=== PATIENT | male | born 1975 | race African-American/Black ===

== ENCOUNTER 2021-02-23 05:48 | Inpatient (IN) ==
[2021-02-23] MEDS ORDERED: SODIUM CHLORIDE 0.9% 1000ML 2,000 ML IV ONE (06:08)
[2021-02-23] MEDS ORDERED: KETOROLAC TROMETHAMINE 15 MG/ML VIAL IV STA (06:10)
--- NOTE | 2021-02-23 06:32 | Emergency Department Note ---
ED Visit Note I contributed to the care of this patient under the supervision of Dr. Funez . Resident Activity Tracking Resident Involvement: Resident Care Provided Care Provided: Adult ED
--- NOTE | 2021-02-23 06:45 | XRay Report ---
XR chest 1V portable CLINICAL HISTORY: Resp sx c/w COVID-19 COMPARISON STUDY: No previous studies for comparison. FINDINGS: There is no pneumothorax or pleural effusion. Multifocal bilateral airspace opacities are present. Cardiac size is at the upper limits of normal. There is no evidence for pulmonary edema. IMPRESSION: Multifocal bilateral airspace opacities consistent with pneumonia. ACT 112: Negative or not required by law. Electronically signed by: Jakob Ingram M.D. 02/23/2021 6:44 AM
[2021-02-23 06:58] LABS: Basophils # (auto) 0.01 K/uL (0-0.2); Basophils % (auto) 0.1 %; Hemoglobin 14.9 g/dL (14.0-18.0); Immature Granulocytes # (auto) 0.01 K/uL (0.00-0.02); Immature Granulocytes % (auto) 0.1 %; Lymphocytes # (auto) 1.03 K/uL (1.2-3.4); Lymphocytes % (auto) 14.2 %; Mean Corpuscular Hemoglobin 30.7 pg (25-34); Mean Corpuscular Hgb Conc 34.7 g/dL (32-36); Mean Corpuscular Volume 88.5 fL (80-100); Mean Platelet Volume 12.2 fL (7.4-10.4); Monocytes # (auto) 0.46 K/uL (0.11-0.59); Monocytes % (auto) 6.3 %; Neutrophils # (auto) 5.75 K/uL (1.4-6.5); Neutrophils % (auto) 79.3 %; Platelet Count 154 K/uL (130-400); RDW Coefficient of Variation 12.7 % (11.5-14.5); RDW Standard Deviation 40.9 fL (36.4-46.3); Red Blood Count 4.86 M/uL (4.7-6.1); White Blood Count 7.26 K/uL (4.8-10.8)
[2021-02-23 06:59] LABS: Alanine Aminotransferase 49 U/L (12-78); Albumin Level 3.2 gm/dl (3.4-5.0); Aspartate Aminotransferase 66 U/L (15-37); BUN Creatinine Ratio 14.2 (10-20); Blood Urea Nitrogen 28 mg/dl (7-18); Calcium 8.3 mg/dl (8.5-10.1); Carbon Dioxide 25 mmol/L (21-32); Chloride 101 mmol/L (98-107); Est GFR (Non-African American) 39.7; Glucose 114 mg/dl (70-99); Potassium 3.8 mmol/L (3.5-5.1); Sodium 133 mmol/L (136-145)
[2021-02-23 07:02] LABS: Albumin Globulin Ratio 0.7 (0.9-2); Alkaline Phosphatase 37 U/L (45-117); Bilirubin,Total 0.5 mg/dl (0.2-1); Globulin 4.5 gm/dl (2.5-4.0); Total Protein 7.7 gm/dl (6.4-8.2)
--- NOTE | 2021-02-23 07:12 | Emergency Department Note ---
History of Present Illness General Chief complaint: Illness Stated complaint: COUGH,CHILLS,WEAKNESS,BODY ACHES POSSIBLE COVID Time Seen by Provider: 02/23/21 06:18 History of Present Illness Provider complaint: Weakness fatigue cough shortness of breath Onset (ago): day(s) 8 Current Pain Intensity: 0 Associated symptoms: + cough, + fever/chills, + headaches, + nausea/vomiting (No vomiting), + shortness of breath, + syncope and + weakness 45-year-old -[place] male presents to the emergency department with fatigue shortness of breath body aches and weakness. Patient reports his tested positive for COVID on February 14. He states his son and him got tested after and were negative at the time, but were asymptomatic. Shortly after that he started developing symptoms. He reports waking up at night with soaking night sweats, chills, diarrhea, no appetite. Bowel movements are brown-water, no blood or melena. Urine has been dark/gold. Patient reports increased fatigue. He reports he started standing up at home and felt like he was going to pass out and has fallen from weakness. Patient denies any head trauma. Patient is not on any blood thinners. No abdominal pain, or vomiting. Patient does report nausea. No chest pain at this time. Home Medications Medication Instructions Recorded Confirmed Type No Known Home Medications 07/16/20 02/23/21 History Allergies Allergy/AdvReac Type Severity Reaction Status Date / Time No Known Allergies Allergy Verified 02/23/21 06:13 Past Med/Surg History Medical History (Updated 02/23/21 @ 09:58 by Jaison Funez) Hypertension Pre-hypertension Surgical History No pertinent past surgical history Family History Father Hypertension Diabetes Prostate cancer Mother Hypertension Diabetes Denies family history of Ovarian cancer Myocardial infarction Breast cancer Colorectal cancer Social History Smoking Status: Never smoker Second Hand Exposure: No; Hx Alcohol Use: Yes Hx Substance Use: No Preferred Language: Amharic Visual Impairment: No Limitations Hearing Ability: Normal marital status: Current Living Situation: Spouse current occupational status: employed 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, 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: Yes Physical Activity Frequency: 3-4 Times per Week Review of Systems A total of 10 systems reviewed and were otherwise negative Physical Exam Vital Signs Vital Signs - 24 hr 02/23/21 05:52 02/23/21 06:05 02/23/21 06:09 Temperature 37.4 C Temperature Source Temporal Artery Scan Pulse Rate 93 H 89 90 Pulse Rate [Right Finger] Pulse Rate from SpO2 Sensor 90 89 Respiratory Rate 20 24 24 Respiratory Effort / Characteristics Non-Labored Spontaneous Respiratory Depth Normal Respiratory Pattern Regular Blood Pressure 81/59 L 97/71 L Blood Pressure [Left Arm] Blood Pressure Mean 66 79 Blood Pressure Mean [Left Arm] Blood Pressure Position Sitting Blood Pressure Position [Left Arm] Pulse Oximetry 94 91 90 Oxygen Delivery Method Room Air Oxygen Flow Rate Sepsis Recent Fever Within 48 Hours Yes Sepsis New/Unexplained Change in Mental Status No Sepsis Action Taken by Nursing No Action Required Pulse Oximetry Post Tiitration 02/23/21 06:26 02/23/21 06:30 02/23/21 06:34 Temperature Temperature Source Pulse Rate 86 90 Pulse Rate [Right Finger] 88 Pulse Rate from SpO2 Sensor 87 81 Respiratory Rate 24 27 H 24 Respiratory Effort / Characteristics Respiratory Depth Respiratory Pattern Blood Pressure 118/84 Blood Pressure [Left Arm] 97/71 L Blood Pressure Mean 95 Blood Pressure Mean [Left Arm] 79 Blood Pressure Position Blood Pressure Position [Left Arm] Lying Pulse Oximetry 88 L 90 86 L Oxygen Delivery Method Room Air Oxygen Flow Rate Sepsis Recent Fever Within 48 Hours Sepsis New/Unexplained Change in Mental Status Sepsis Action Taken by Nursing Pulse Oximetry Post Tiitration 02/23/21 07:00 02/23/21 07:30 02/23/21 07:39 Temperature Temperature Source Pulse Rate 84 81 84 Pulse Rate [Right Finger] Pulse Rate from SpO2 Sensor 84 81 85 Respiratory Rate 24 26 H 24 Respiratory Effort / Characteristics Respiratory Depth Respiratory Pattern Blood Pressure 150/104 H Blood Pressure [Left Arm] Blood Pressure Mean 119 Blood Pressure Mean [Left Arm] Blood Pressure Position Blood Pressure Position [Left Arm] Pulse Oximetry 91 92 92 Oxygen Delivery Method Oxygen Flow Rate Sepsis Recent Fever Within 48 Hours Sepsis New/Unexplained Change in Mental Status Sepsis Action Taken by Nursing Pulse Oximetry Post Tiitration 02/23/21 07:40 02/23/21 08:00 02/23/21 08:01 Temperature Temperature Source Pulse Rate 83 83 82 Pulse Rate [Right Finger] Pulse Rate from SpO2 Sensor 84 83 82 Respiratory Rate 28 H 24 16 Respiratory Effort / Characteristics Respiratory Depth Respiratory Pattern Blood Pressure 116/82 Blood Pressure [Left Arm] Blood Pressure Mean 93 Blood Pressure Mean [Left Arm] Blood Pressure Position Blood Pressure Position [Left Arm] Pulse Oximetry 92 99 98 Oxygen Delivery Method Oxygen Flow Rate Sepsis Recent Fever Within 48 Hours Sepsis New/Unexplained Change in Mental Status Sepsis Action Taken by Nursing Pulse Oximetry Post Tiitration 02/23/21 08:30 02/23/21 08:31 02/23/21 09:00 Temperature Temperature Source Pulse Rate 88 83 87 Pulse Rate [Right Finger] Pulse Rate from SpO2 Sensor 88 82 87 Respiratory Rate 23 12 14 Respiratory Effort / Characteristics Respiratory Depth Respiratory Pattern Blood Pressure 135/79 127/74 Blood Pressure [Left Arm] Blood Pressure Mean 97 91 Blood Pressure Mean [Left Arm] Blood Pressure Position Blood Pressure Position [Left Arm] Pulse Oximetry 100 97 96 Oxygen Delivery Method Oxygen Flow Rate Sepsis Recent Fever Within 48 Hours Sepsis New/Unexplained Change in Mental Status Sepsis Action Taken by Nursing Pulse Oximetry Post Tiitration 02/23/21 09:01 02/23/21 09:29 Temperature Temperature Source Pulse Rate 94 H Pulse Rate [Right Finger] Pulse Rate from SpO2 Sensor 93 H Respiratory Rate 24 Respiratory Effort / Characteristics Respiratory Depth Respiratory Pattern Blood Pressure Blood Pressure [Left Arm] Blood Pressure Mean Blood Pressure Mean [Left Arm] Blood Pressure Position Blood Pressure Position [Left Arm] Pulse Oximetry 94 89 L Oxygen Delivery Method Nasal Cannula Oxygen Flow Rate 2 Sepsis Recent Fever Within 48 Hours Sepsis New/Unexplained Change in Mental Status Sepsis Action Taken by Nursing Pulse Oximetry Post Tiitration 95 Physical Exam GENERAL: He is oriented to person, place, and time. He appears well-developed and well-nourished. He does not appear distressed. HENT: Exam performed. - Head: Normocephalic and atraumatic. - Right Ear: External ear normal. No mastoid tenderness. - Left Ear: External ear normal. No mastoid tenderness. - Mouth/Throat: The oropharynx is clear and moist. No trismus in the jaw. No dental abscesses or uvula swelling. No oropharyngeal exudate or tonsillar abscesses. EYES: Conjunctivae and EOM are normal. Pupils are equal, round, and reactive to light. Right eye exhibits no discharge. Left eye exhibits no discharge. No scleral icterus. NECK: Normal range of motion. Neck supple. No JVD present. No spinous process tenderness present. No carotid bruit present. No rigidity. No tracheal deviation and normal range of motion present. No Brudzinski's sign and no Kernig's sign noted. CV: Tachycardic rate, regular rhythm, normal heart sounds and intact distal pulses. There is no peripheral edema. Palpable radial pulses bue. PULM/CHEST: Diminished breath sounds bilaterally and rhonchi bilaterally. ABD: The abdomen is soft. Bowel sounds are normal. He has no distension. No mass is present. There is no tenderness. There is no rebound, no guarding, no Shoemaker's sign and no tenderness at McBurney's point. Rovsig negative. MUSC/SKEL: Normal range of motion. There is no peripheral edema, tenderness or deformity. LYMPH: No cervical adenopathy. NEURO: He is alert and oriented to person, place, and time. He has normal strength. No cranial nerve deficit or sensory deficit. Coordination and gait normal. GCS eye subscore is 4. GCS verbal subscore is 5. GCS motor subscore is 6. Cerebellar tests wnl. SKIN: Skin is warm and dry. He is not diaphoretic. PSYCH: He has a normal mood and affect. Behavior is normal. Judgment and thought content normal. Course Course 0635: The patient was evaluated in room A9. A complete history and physical exam was performed Cardiac monitoring: An order was placed for continuous cardiac monitoring. The monitor shows a rate of 100 with sinus rhythm Patient was seen in full airborne precautions. Patient was seen in N95's, gloves, gowns, face shield by myself and staff. Patient was seen by resident physician Dr. Aleta baker prior to my evaluating the patient. On assessment the patient was found to be hypotensive and hypoxic. Sepsis protocols were initiated. IV fluids were started on the patient. Patient has a strong likelihood of having COVID-19 given his 's recent positive test and given his hypoxia patient was started on Decadron 6 mg IV push. Patient was hypoxic on room air and was started on 2 L of supplemental oxygen via nasal cannula which improved his oxygen saturation. 0842: Vital signs stable on supplemental oxygen via nasal cannula. Patient does have an acute kidney injury with a creatinine of 1.99. Patient positive for COVID-19 and does have chest x-ray findings which show typical appearance of bilateral groundglass opacities and Covid pneumonia. We will admit the patient to the hospital service Dr. Daniels's team has been notified. Procalcitonin elevated. Patient started on empiric antibiotic treatment Rocephin and azithromycin. Unable to obtain CT of the chest due to creatinine, will start the patient on Lovenox for Covid prophylaxis/possible PE. Administered Medications Dexamethasone 6 mg/ Syringe 1.5 mls @ 1 mls/min IV DAILY TARIQ Stop: 03/05/21 08:59 Last Admin: 02/23/21 07:39 Dose: 1 mls/min Documented by: [id number] Discontinued Medications Sodium Chloride (Nss 1000ml) 2,000 mls @ 999 mls/hr IV .Q2H1M ONE Stop: 02/23/21 08:08 Last Admin: 02/23/21 06:16 Dose: 999 mls/hr Documented by: [id number] Ioversol (Optiray 320 125ml) 120 ml IV ONCE ONE Stop: 02/23/21 08:12 Last Admin: 02/23/21 08:11 Dose: 120 ml Documented by: [id number] Ketorolac Tromethamine (Ketorolac Tromethamine 15 Mg/Ml Vial) 10 mg IV NOW STA Stop: 02/23/21 06:11 Last Admin: 02/23/21 06:20 Dose: 10 mg Documented by: [id number] Critical Care Time Critical Care Time: Yes Total Critical Care Time: 57 I have personally spent greater than 57 minutes of critical care time in the direct management of this patient. This includes bedside care, interpretation of diagnostic studies, and testing, discussion with consultants, patient, and family members, and other required patient management activities. This 57 minutes is in excess of all separately billable procedures. Medical Decision Making Laboratory Data Result diagrams: 02/23/21 06:16 02/23/21 06:16 Lab Results 02/23/21 02/23/21 02/23/21 Range/Units 06:16 06:16 06:16 WBC 7.26 (4.8-10.8) K/uL RBC 4.86 (4.7-6.1) M/uL Hgb 14.9 (14.0-18.0) g/dL Hct 43.0 (42-52) % MCV 88.5 (80-100) fL MCH 30.7 (25-34) pg MCHC 34.7 (32-36) g/dL RDW Std Deviation 40.9 (36.4-46.3) fL RDW Coeff of Chapo 12.7 (11.5-14.5) % Plt Count 154 (130-400) K/uL MPV 12.2 H (7.4-10.4) fL Immature Gran % (Auto) 0.1 % Neut % (Auto) 79.3 % Lymph % (Auto) 14.2 % Sharkey % (Auto) 6.3 % Eos % (Auto) 0.0 % Baso % (Auto) 0.1 % Neut # (Auto) 5.75 (1.4-6.5) K/uL Lymph # (Auto) 1.03 L (1.2-3.4) K/uL Sharkey # (Auto) 0.46 (0.11-0.59) K/uL Eos # (Auto) 0.00 (0-0.5) K/uL Baso # (Auto) 0.01 (0-0.2) K/uL Immature Gran # (Auto) 0.01 (0.00-0.02) K/uL PT (9.0-12.0) Seconds INR (0.9-1.1) APTT (21.0-31.0) Seconds PTT Ratio D-Dimer (0-500) ug/L FEU VBG pH (7.36-7.41) VBG pCO2 (38-50) mmHg VBG pO2 mmHg VBG HCO3 mmol/L VBG O2 Saturation % VBG Base Excess mEq/L Barometric Pressure mm/Hg Sodium 133 L (136-145) mmol/L Potassium 3.8 (3.5-5.1) mmol/L Chloride 101 (98-107) mmol/L Carbon Dioxide 25 (21-32) mmol/L Anion Gap 7.0 (3-11) BUN 28 H (7-18) mg/dl Creatinine 1.99 H (0.6-1.4) mg/dl Est Cr Clr Drug Dosing Not Reportable Est GFR ( Amer) 46.0 Est GFR (Non-Af Amer) 39.7 BUN/Creatinine Ratio 14.2 (10-20) Glucose 114 H (70-99) mg/dl Lactate (0.4-2.0) mmol/L Calcium 8.3 L (8.5-10.1) mg/dl Magnesium (1.8-2.4) mg/dl Total Bilirubin 0.5 (0.2-1) mg/dl Direct Bilirubin (0-0.2) mg/dl AST 66 H (15-37) U/L ALT 49 (12-78) U/L Alkaline Phosphatase 37 L (45-117) U/L Troponin I (0-0.045) ng/ml Total Protein 7.7 (6.4-8.2) gm/dl Albumin 3.2 L (3.4-5.0) gm/dl Globulin 4.5 H (2.5-4.0) gm/dl Albumin/Globulin Ratio 0.7 L (0.9-2) Lipase (73-393) U/L Procalcitonin (0-0.5) ng/ml COVID-19 Eval Order CovFluRsv at [facility] SARS-CoV-2 (PCR) (Negative) Influenza Type A (PCR) (Neg) Influenza Type B (PCR) (Neg) RSV (RT-PCR) (Neg) 02/23/21 02/23/21 02/23/21 Range/Units 06:16 06:46 07:22 WBC (4.8-10.8) K/uL RBC (4.7-6.1) M/uL Hgb (14.0-18.0) g/dL Hct (42-52) % MCV (80-100) fL MCH (25-34) pg MCHC (32-36) g/dL RDW Std Deviation (36.4-46.3) fL RDW Coeff of Chapo (11.5-14.5) % Plt Count (130-400) K/uL MPV (7.4-10.4) fL Immature Gran % (Auto) % Neut % (Auto) % Lymph % (Auto) % Sharkey % (Auto) % Eos % (Auto) % Baso % (Auto) % Neut # (Auto) (1.4-6.5) K/uL Lymph # (Auto) (1.2-3.4) K/uL Sharkey # (Auto) (0.11-0.59) K/uL Eos # (Auto) (0-0.5) K/uL Baso # (Auto) (0-0.2) K/uL Immature Gran # (Auto) (0.00-0.02) K/uL PT (9.0-12.0) Seconds INR (0.9-1.1) APTT (21.0-31.0) Seconds PTT Ratio D-Dimer (0-500) ug/L FEU VBG pH (7.36-7.41) VBG pCO2 (38-50) mmHg VBG pO2 mmHg VBG HCO3 mmol/L VBG O2 Saturation % VBG Base Excess mEq/L Barometric Pressure mm/Hg Sodium (136-145) mmol/L Potassium (3.5-5.1) mmol/L Chloride (98-107) mmol/L Carbon Dioxide (21-32) mmol/L Anion Gap (3-11) BUN (7-18) mg/dl Creatinine (0.6-1.4) mg/dl Est Cr Clr Drug Dosing Est GFR ( Amer) Est GFR (Non-Af Amer) BUN/Creatinine Ratio (10-20) Glucose (70-99) mg/dl Lactate 1.1 (0.4-2.0) mmol/L Calcium (8.5-10.1) mg/dl Magnesium 2.3 (1.8-2.4) mg/dl Total Bilirubin 0.4 (0.2-1) mg/dl Direct Bilirubin < 0.1 (0-0.2) mg/dl AST 62 H (15-37) U/L ALT 45 (12-78) U/L Alkaline Phosphatase 35 L (45-117) U/L Troponin I < 0.015 (0-0.045) ng/ml Total Protein 6.8 (6.4-8.2) gm/dl Albumin 2.8 L (3.4-5.0) gm/dl Globulin (2.5-4.0) gm/dl Albumin/Globulin Ratio (0.9-2) Lipase 141 (73-393) U/L Procalcitonin (0-0.5) ng/ml COVID-19 Eval Order SARS-CoV-2 (PCR) POSITIVE A* (Negative) Influenza Type A (PCR) Negative (Neg) Influenza Type B (PCR) Negative (Neg) RSV (RT-PCR) Negative (Neg) 02/23/21 02/23/21 02/23/21 Range/Units 07:22 07:22 07:22 WBC (4.8-10.8) K/uL RBC (4.7-6.1) M/uL Hgb (14.0-18.0) g/dL Hct (42-52) % MCV (80-100) fL MCH (25-34) pg MCHC (32-36) g/dL RDW Std Deviation (36.4-46.3) fL RDW Coeff of Chapo (11.5-14.5) % Plt Count (130-400) K/uL MPV (7.4-10.4) fL Immature Gran % (Auto) % Neut % (Auto) % Lymph % (Auto) % Sharkey % (Auto) % Eos % (Auto) % Baso % (Auto) % Neut # (Auto) (1.4-6.5) K/uL Lymph # (Auto) (1.2-3.4) K/uL Sharkey # (Auto) (0.11-0.59) K/uL Eos # (Auto) (0-0.5) K/uL Baso # (Auto) (0-0.2) K/uL Immature Gran # (Auto) (0.00-0.02) K/uL PT 11.0 (9.0-12.0) Seconds INR 1.1 (0.9-1.1) APTT 36.1 H (21.0-31.0) Seconds PTT Ratio 1.4 D-Dimer (0-500) ug/L FEU VBG pH 7.44 H (7.36-7.41) VBG pCO2 34 L (38-50) mmHg VBG pO2 32 mmHg VBG HCO3 23 mmol/L VBG O2 Saturation 60.6 % VBG Base Excess -1.0 mEq/L Barometric Pressure 738.7 mm/Hg Sodium (136-145) mmol/L Potassium (3.5-5.1) mmol/L Chloride (98-107) mmol/L Carbon Dioxide (21-32) mmol/L Anion Gap (3-11) BUN (7-18) mg/dl Creatinine (0.6-1.4) mg/dl Est Cr Clr Drug Dosing Est GFR ( Amer) Est GFR (Non-Af Amer) BUN/Creatinine Ratio (10-20) Glucose (70-99) mg/dl Lactate (0.4-2.0) mmol/L Calcium (8.5-10.1) mg/dl Magnesium (1.8-2.4) mg/dl Total Bilirubin (0.2-1) mg/dl Direct Bilirubin (0-0.2) mg/dl AST (15-37) U/L ALT (12-78) U/L Alkaline Phosphatase (45-117) U/L Troponin I (0-0.045) ng/ml Total Protein (6.4-8.2) gm/dl Albumin (3.4-5.0) gm/dl Globulin (2.5-4.0) gm/dl Albumin/Globulin Ratio (0.9-2) Lipase (73-393) U/L Procalcitonin 1.46 H (0-0.5) ng/ml COVID-19 Eval Order SARS-CoV-2 (PCR) (Negative) Influenza Type A (PCR) (Neg) Influenza Type B (PCR) (Neg) RSV (RT-PCR) (Neg) 02/23/21 Range/Units 07:22 WBC (4.8-10.8) K/uL RBC (4.7-6.1) M/uL Hgb (14.0-18.0) g/dL Hct (42-52) % MCV (80-100) fL MCH (25-34) pg MCHC (32-36) g/dL RDW Std Deviation (36.4-46.3) fL RDW Coeff of Chapo (11.5-14.5) % Plt Count (130-400) K/uL MPV (7.4-10.4) fL Immature Gran % (Auto) % Neut % (Auto) % Lymph % (Auto) % Sharkey % (Auto) % Eos % (Auto) % Baso % (Auto) % Neut # (Auto) (1.4-6.5) K/uL Lymph # (Auto) (1.2-3.4) K/uL Sharkey # (Auto) (0.11-0.59) K/uL Eos # (Auto) (0-0.5) K/uL Baso # (Auto) (0-0.2) K/uL Immature Gran # (Auto) (0.00-0.02) K/uL PT (9.0-12.0) Seconds INR (0.9-1.1) APTT (21.0-31.0) Seconds PTT Ratio D-Dimer 660 H* (0-500) ug/L FEU VBG pH (7.36-7.41) VBG pCO2 (38-50) mmHg VBG pO2 mmHg VBG HCO3 mmol/L VBG O2 Saturation % VBG Base Excess mEq/L Barometric Pressure mm/Hg Sodium (136-145) mmol/L Potassium (3.5-5.1) mmol/L Chloride (98-107) mmol/L Carbon Dioxide (21-32) mmol/L Anion Gap (3-11) BUN (7-18) mg/dl Creatinine (0.6-1.4) mg/dl Est Cr Clr Drug Dosing Est GFR ( Amer) Est GFR (Non-Af Amer) BUN/Creatinine Ratio (10-20) Glucose (70-99) mg/dl Lactate (0.4-2.0) mmol/L Calcium (8.5-10.1) mg/dl Magnesium (1.8-2.4) mg/dl Total Bilirubin (0.2-1) mg/dl Direct Bilirubin (0-0.2) mg/dl AST (15-37) U/L ALT (12-78) U/L Alkaline Phosphatase (45-117) U/L Troponin I (0-0.045) ng/ml Total Protein (6.4-8.2) gm/dl Albumin (3.4-5.0) gm/dl Globulin (2.5-4.0) gm/dl Albumin/Globulin Ratio (0.9-2) Lipase (73-393) U/L Procalcitonin (0-0.5) ng/ml COVID-19 Eval Order SARS-CoV-2 (PCR) (Negative) Influenza Type A (PCR) (Neg) Influenza Type B (PCR) (Neg) RSV (RT-PCR) (Neg) Imaging Data Radiologist's Impression: XR chest 1V portable CLINICAL HISTORY: Resp sx c/w COVID-19 COMPARISON STUDY: No previous studies for comparison. FINDINGS: There is no pneumothorax or pleural effusion. Multifocal bilateral airspace opacities are present. Cardiac size is at the upper limits of normal. There is no evidence for pulmonary edema. IMPRESSION: Multifocal bilateral airspace opacities consistent with pneumonia. ACT 112: Negative or not required by law. Electronically signed by: Jakob Ingram M.D. 02/23/2021 6:44 AM Dictated: 02/23/21642 Transcribed: 02/23/21642 ECG Data Indication: + SOB/dyspnea Rate (beats per minute): 85 Rhythm: + normal sinus ECG Intervals/blocks: + Normal QRS, + Normal [place] and + Normal QT-c ECG ST segments: + Normal ST segments MDM Narrative 0635: The patient was evaluated in room A9. A complete history and physical exam was performed Cardiac monitoring: An order was placed for continuous cardiac monitoring. The monitor shows a rate of 100 with sinus rhythm Patient was seen in full airborne precautions. Patient was seen in N95's, gloves, gowns, face shield by myself and staff. Patient was seen by resident physician Dr. Aleta baker prior to my evaluating the patient. On assessment the patient was found to be hypotensive and hypoxic. Sepsis protocols were initiated. IV fluids were started on the patient. Patient has a strong likelihood of having COVID-19 given his 's recent positive test and given his hypoxia patient was started on Decadron 6 mg IV push. Patient was hypoxic on room air and was started on 2 L of supplemental oxygen via nasal cannula which improved his oxygen saturation. 0842: Vital signs stable on supplemental oxygen via nasal cannula. Patient does have an acute kidney injury with a creatinine of 1.99. Patient positive for COVID-19 and does have chest x-ray findings which show typical appearance of bilateral groundglass opacities and Covid pneumonia. We will admit the patient to the hospital service Dr. Daniels's team has been notified. Procalcitonin elevated. Patient started on empiric antibiotic treatment Rocephin and azithromycin. Unable to obtain CT of the chest due to creatinine, will start the patient on Lovenox for Covid prophylaxis/possible PE. Impression & Plan Pneumonia due to COVID-19 virus, KATIE (acute kidney injury), Hypoxia Discharge Plan Visit Data Chief Complaint: Illness Stated Complaint: COUGH,CHILLS,WEAKNESS,BODY ACHES POSSIBLE COVID ED Provider: Jaison Funez ED Midlevel Provider: Ramon Manley Discharge Problem: Pneumonia due to COVID-19 virus, KATIE (acute kidney injury), Hypoxia Patient Disposition: Admitted As Inpatient Forms Stand Alone Forms: [facility] Prescriptions Prescriptions: No Action No Known Home Medications RF: 0 Referrals Referrals: Bebeto Posey, [Primary Care Provider] -
[2021-02-23 07:20] LABS: Influenza A virus by PCR Negative (Neg); Influenza B virus by PCR Negative (Neg); RSV by PCR Negative (Neg)
[2021-02-23 07:26] LABS: SARS CoV2 RNA(COVID-19) InHosp POSITIVE (Negative)
[2021-02-23] MEDS: dexAMETHasone 6 MG in SYRINGE 0 ML IV SCH (07:39)
[2021-02-23 07:43] LABS: Oxygen Saturation VBG 60.6 %; pH VBG 7.44 (7.36-7.41)
[2021-02-23 07:56] LABS: Alanine Aminotransferase 45 U/L (12-78); Albumin Level 2.8 gm/dl (3.4-5.0); Alkaline Phosphatase 35 U/L (45-117); Aspartate Aminotransferase 62 U/L (15-37); Bilirubin Direct < 0.1 mg/dl (0-0.2); Bilirubin,Total 0.4 mg/dl (0.2-1); Lipase 141 U/L (73-393); Magnesium 2.3 mg/dl (1.8-2.4); Total Protein 6.8 gm/dl (6.4-8.2); Troponin I < 0.015 ng/ml (0-0.045)
[2021-02-23 07:59] LABS: INR 1.1 (0.9-1.1); Partial Thromboplastin Ratio 1.4; Partial Thromboplastin Time 36.1 Seconds (21.0-31.0)
[2021-02-23] MEDS ORDERED: OPTIRAY 320 125ml IV ONE (08:11)
[2021-02-23 08:31] LABS: D Dimer 660 ug/L FEU (0-500)
--- NOTE | 2021-02-23 08:53 | History & Physical Report ---
Date of Service February 23, 2021 Assessment & Plan (1) Pneumonia due to COVID-19 virus: Antoni Page"is a 45-year-old male with a past medical history of prehypertension who presents with weakness, chills, cough, who is COVID positive. Covid pneumonia, ?Superimposed bacterial PNA with elevated procal Satting 88-92% on room air, quickly desats to mid 80s with speech CXR:Multifocal bilateral airspace opacities consistent with pneumonia. 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 Defer convalescent plasma and remdesivir at this time Dexamethasone 6 mg x 10 days Ddimer 660, platelets 154. CBC daily. - AST trace elevated, CMP daily Pro-Johnnie elevated, +empiric Rocephin/Azithromycin Lactate negative Troponin negative Increased risk for complications given elevated D-dimer, -Nepalese ethnicity, high BMI Blood pressure initially hypotensive, 2 L NSS given on admission, hypertensive following 150/104 We will admit to med telemetry for monitoring and use of IV antihypertensives if needed KATIE management as below (2) KATIE (acute kidney injury): Elevated creatinine, prerenal azotemia versus KATIE Normal baseline Acutely elevated to 1.99 CT deferred due to elevated creatinine, lack of tachycardia, no signs of right heart strain on EKG Fluids as below Trend BMP daily Diet: Regular. IVF M NSS plus KCl 120 cc/h while not tolerating Disposition: PCU DVT PPX: Covid adjusted DVT pharmacoppx Lovenox 40mg BID. Defer weight increase to 65mg BID 2/2 KATIE & will follow renal function, discussed with pharm. CODE STATUS: Full code History of Present Illness Chief Complaint: Weakness, Cough Primary Care Provider: Bebeto Posey DO Antoni Page"is a 45-year-old male with a past medical history of prehypertension who presents with weakness, chills, cough, and concern for Covid. Sathish reports that for 7 days he has had cough, chills, diarrhea, no appetite, and soaking night sweats. He reports he was tested 8 days ago, and was negative, but developed symptoms the day after his test. His has tested positive for Covid, his son who also initially tested negative has retested positive for Covid. He reports he presented to the ER because he felt "really bad and just wiped out "and has not been eating and drinking as well. He has had multiple liquid brown watery bowel movements without blood daily. His urine has been very dark. He reports he has been too fatigued to stand up, and had 3 episodes where he was standing at home and slumped to the ground because he was "just wiped out ". He denies syncope, and did not hit his head or neck. He does not have any focal weakness, but endorses global fatigue. He endorses a constant dry cough which has been productive for brown/yellow mucus a couple of times, but is otherwise nonproductive. He endorses some shortness of breath, and feeling like he is working hard to breathe. He is not having chest pain or chest pressure. He denies numbness and tingling. Medical history: Reviewed, prehypertension Medications: Reviewed, no home medications Allergies: Reviewed, no known drug allergies and no known food allergies Family history: Denies family history of blood clots, strokes, and AR Social: Living situation: Patient reports he lives in a home with his and son. Both his and his son have tested positive for Covid. He has been working from home, works with [employer] and [employer] services. Tobacco use: Denies tobacco use including cigarettes, chew, and vaping Alcohol: Endorses drinking 1-2 times per week, 6 per setting on the weekends. No history of withdrawal symptoms Recreational drug use: Denies recreational drug and medical marijuana use CODE STATUS: Full code Allergies Allergy/AdvReac Type Severity Reaction Status Date / Time No Known Allergies Allergy Verified 02/23/21 06:13 Home Medications Medication Instructions Recorded Confirmed Type No Known Home Medications 07/16/20 02/23/21 History Past Med/Surg History Medical History (Updated 02/23/21 @ 09:58 by Jaison Funez) Hypertension Pre-hypertension Surgical History No pertinent past surgical history Family History Father Hypertension Diabetes Prostate cancer Mother Hypertension Diabetes Denies family history of Ovarian cancer Myocardial infarction Breast cancer Colorectal cancer Social History Smoking Status: Never smoker Second Hand Exposure: No; Do You Dip or Chew Tobacco: No; Tobacco Cessation Education Requested by Patient: No Hx Alcohol Use: Yes Alcohol type: beer Hx Substance Use: No Preferred Language: Rwandan Visual Impairment: No Limitations Hearing Ability: Normal Jalousies Installer Required: No Beliefs That Will Affect Care: None marital status: Current Living Situation: Spouse and Family current occupational status: employed 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 Other Information That Helps Us Care for You: No Safety Concerns: Feels Safe At This Time Dental Care, Regularly: Yes Physical Activity Frequency: 3-4 Times per Week Assistive Devices: Glasses Review of Systems Review of Systems: Constitutional: See ROS Eyes: Denies double vision, vision change, eye pain ENT: Denies ear pain, sore throat, sinus pain Cardiovascular: Denies Chest pain, chest pressure, palpitations, extremity swelling Respiratory: See ROS Gastrointestinal: See ROS Genitourinary: Denies pain with urination, urinary urgency, urinary frequency Musculoskeletal: See ROS Integumentary:Denies rash, lesions, bruising Neurological: Denies headache, numbness, tingling, focal weakness Physical Exam Physical Exam: General: A&Ox3. NAD. Cooperative. HEENT: Atraumatic, normocephalic. No neck tenderness, no cervical spinal tenderness, no cranial bruising/abrasions. Pulm: Right lower lobe Rales. Left lower lobe crackles. Moderate air movement. Tachypneic. No accessory muscle use of breathing. Cardiac: RRR, -mrg. Radial pulses intact and symmetrical. Abdominal: Nontender, nondistended, soft. BS present. Extremity: Warm, dry. Moving all extremities equally. Online Marketing Analyst strength, ankle plantar flexion/dorsiflexion, hip flexion, shoulder flexion/extension 5/5 without asymmetry. Sensation intact in fingertips and toes to soft touch wit hout asymmetry. Neuro: CRANIAL NERVES: II: Pupils equal and reactive, no relative afferent pupillary defect, no VF cuts III, IV, : EOM intact, no gaze preference or deviation, no nystagmus. VII: no asymmetry, no nasolabial fold flattening VIII: normal hearing to speech IX, X: normal palatal elevation, no uvular deviation XI: 5/5 head turn and 5/5 shoulder shrug bilaterally XII: midline tongue protrusion MOTOR: As above Results & Data Results & Data ([facility]) Vital Signs (Past 12 Hours) Vital Signs Temp Pulse Pulse Resp BP BP Pulse Ox 02/23/21 07:39 84 24 150/104 H 92 02/23/21 07:30 81 26 H 92 02/23/21 07:00 84 24 91 02/23/21 06:34 90 24 118/84 86 L 02/23/21 06:30 86 27 H 90 02/23/21 06:26 88 24 97/71 L 88 L 02/23/21 06:09 90 24 90 02/23/21 06:05 89 24 97/71 L 91 02/23/21 05:52 37.4 C 93 H 20 81/59 L 94 Supervising Physician Co-Signing Physician Notes Patient seen and examined with Dr. Sánchez. I agree with his exam findings, review of systems, assessment and plan. I have personally reviewed the lab work and imaging from today. patient has been sick for about a week, has had diarrhea, weakness, just started to develop dyspnea, not much of a cough had become dehydrated with the diarrhea, unable to eat and drink enough to keep up with volume loss CXR with bilateral, hazy infiltrates - COVID 19 pneumonia with acute hypoxic respiratory failure dexamethasone 6mg IV daily too far out for Remdesivir, also his Cr is 1.9 procalcitonin a little high, will cover with Rocephin and Zithromax for 5 days high risk to get worse based on high d dimer, extensive infiltrates on x-ray, male, overweight monitor closely for any signs of deterioration - Acute kidney injury due to GI losses with diarrhea aggressive IV fluids, replace electrolytes check BMP in the morning monitor volume status, don't want to overhydrate with his COVID pneumonia Resident Activity Tracking Resident Involvement: Resident Care Provided Care Provided: Adult ED
[2021-02-23] MEDS ORDERED: AZITHROMYCIN 500 MG in DEXTROSE 5% 250 ML IV STA (09:02)
[2021-02-23] MEDS ORDERED: cefTRIAXone SODIUM 1,000 MG/50 ML BAG IV STA (09:02)
[2021-02-23] MEDS: ENOXAPARIN INJ 40 MG/0.4 ML SYR SQ SCH ×2 (12:16→23:40)
[2021-02-23] MEDS: NSS + 20MEQ KCL 20 MEQ/1,000 ML BAG IV SCH ×2 (12:16→21:35)
--- NOTE | 2021-02-23 15:12 | Electrocardiogram Report ---
Test Reason : Blood Pressure : / mmHG Vent. Rate : 085 BPM Atrial Rate : 085 BPM P-R Int : 150 ms QRS Dur : 088 ms QT Int : 366 ms P-R-T Axes : 029 -04 -06 degrees QTc Int : 435 ms Normal sinus rhythm Normal ECG No previous ECGs available Confirmed by Juan David Lala ([id number]) on 02/23/2021 3:11:45 PM Referred By: REFERRED SELF Confirmed By:Juan David Lala
--- NOTE | 2021-02-23 21:21 | Billing Data ---
Date of Service February 23, 2021 [place] [address] Initial Inpt Care Lvl 3 Patient Type New
[2021-02-24] MEDS: NSS + 20MEQ KCL 20 MEQ/1,000 ML BAG IV SCH ×3 (05:28→21:28)
[2021-02-24] MEDS: ACETAMINOPHEN 325 MG TAB PO PRN (05:40)
[2021-02-24 07:39] LABS: Basophils # (auto) 0.01 K/uL (0-0.2); Basophils % (auto) 0.1 %; Hematocrit (blood only) 38.8 % (42-52); Hemoglobin 13.4 g/dL (14.0-18.0); Immature Granulocytes # (auto) 0.03 K/uL (0.00-0.02); Immature Granulocytes % (auto) 0.3 %; Lymphocytes # (auto) 0.72 K/uL (1.2-3.4); Mean Corpuscular Hemoglobin 30.1 pg (25-34); Mean Corpuscular Hgb Conc 34.5 g/dL (32-36); Mean Corpuscular Volume 87.2 fL (80-100); Mean Platelet Volume 12.4 fL (7.4-10.4); Monocytes # (auto) 0.44 K/uL (0.11-0.59); Monocytes % (auto) 4.3 %; Neutrophils # (auto) 9.07 K/uL (1.4-6.5); Neutrophils % (auto) 88.3 %; Platelet Count 155 K/uL (130-400); RDW Coefficient of Variation 12.8 % (11.5-14.5); RDW Standard Deviation 41.3 fL (36.4-46.3); Red Blood Count 4.45 M/uL (4.7-6.1); White Blood Count 10.27 K/uL (4.8-10.8)
[2021-02-24 08:17] LABS: Albumin Globulin Ratio 0.6 (0.9-2); Albumin Level 2.4 gm/dl (3.4-5.0); BUN Creatinine Ratio 20.4 (10-20); Bilirubin,Total 0.5 mg/dl (0.2-1); Calcium 8.4 mg/dl (8.5-10.1); Creatinine Clr Calc Pharmacy 129.5 ml/min; Est GFR (African American) 104.4; Potassium 4.4 mmol/L (3.5-5.1); Total Protein 6.4 gm/dl (6.4-8.2)
[2021-02-24] MEDS: AZITHROMYCIN 250 MG in DEXTROSE 5% 250 ML IV SCH (08:44)
[2021-02-24] MEDS: dexAMETHasone 6 MG in SYRINGE 0 ML IV SCH (08:44)
[2021-02-24] MEDS: cefTRIAXone SODIUM 2,000 MG in DEXTROSE 5% 50 ML IV SCH (08:44)
[2021-02-24] MEDS: ENOXAPARIN INJ 40 MG/0.4 ML SYR SQ SCH ×2 (10:40→23:36)
--- NOTE | 2021-02-24 15:55 | Hospitalist Progress Note ---
Date of Service February 24, 2021 Assessment & Plan (1) Pneumonia due to COVID-19 virus: Antoni Page "is a 45-year-old male with a past medical history of prehypertension who presents with weakness, chills, cough, who is COVID positive. Covid pneumonia, ?Superimposed bacterial PNA with elevated procal continue dexamethasone 6mg IV daily, day 2 continue ceftriaxone and azithromycin, complete 7 days continue IV fluids as PO intake is poor no role for Remdesivir stable on 2L NC, desaturates with ambulation close monitoring for any deterioration, he is at high risk for severe infection (2) KATIE (acute kidney injury): Elevated creatinine at 1.9 on admission resolved with aggressive IV fluids at 120cc/hr Cr down to 1.0 today, electrolytes stable continue fluids today as his PO intake is not good (3) Hypoxia: acute hypoxic respiratory failure, requiring 2L NC today feels short of breath but no distress try to wean back to room air as tolerated ISB, use a few times an hour Admission and Anticipated Discharge Date Admission Date: February 23, 2021 Subjective patient feeling a little worse today, spiking fevers of 38, tachycardia requiring a little bit of oxygen at 2L, stable on room air at times but he desaturates with walking, coughing trying to take deep breaths with incentive spirometer, can only pull 1200mL not eating much at all, continue IV fluids for today, likely stop tomorrow reviewed labs, Cr improved to 1.0 from 1.9, BUN down to 21 from 28, K stable, WBC normal slight acidosis with HCO3 20 no chest pain, + cough, + dyspnea, no nausea/vomiting, no diarrhea today Review of Systems Review of Systems: All systems reviewed & are unremarkable except as noted in Subjective Constitutional: + fever, + chills, + sweats, + fatigue, + malaise and + weakness Respiratory: + cough, + dyspnea and + dyspnea on exertion; no pain with cough and no sputum production Cardiovascular: no chest pain and no edema Gastrointestinal: no abdominal pain, no nausea, no vomiting, no constipation and no diarrhea/loose stools Physical Exam Constitutional: WD/WN, vitals as above + overweight; no acute distress Neck: trachea midline, no thyromegaly Respiratory: normal respiratory effort, lungs clear to auscultation Cardiovascular: RRR, no murmur, no edema Gastrointestinal (Abdomen): normal bowel sounds, soft, nontender, no hepatosplenomegaly Musculoskeletal: no cyanosis or clubbing, extremities motor strength 5/5 Skin: no rashes, warm and dry Neurologic: patellar DTR's 2+ bilat, sensation intact and PERRL, EOMI, accommodation nl, no face palsy, no dysarthria Psychiatric: A+Ox3, euthymic affect Lymphatic: no cervical or axillary lymphadenopathy Results & Data Results & Data ([facility]) Vital Signs (Past 12 Hours) Vital Signs Temp Pulse Pulse Resp BP Pulse Ox 02/24/21 15:03 38.1 C H 89 18 152/88 H 90 02/24/21 15:00 99 H 02/24/21 13:31 87 L 02/24/21 11:44 39.3 C H 93 H 19 136/78 90 02/24/21 09:31 94 H 02/24/21 07:16 37.6 C H 90 18 129/76 94 02/24/21 05:42 38.8 C H 18 98 Laboratory Results Laboratory Results - last 24 hr 02/24/21 02/24/21 06:43 06:43 WBC 10.27 RBC 4.45 L Hgb 13.4 L Hct 38.8 L MCV 87.2 MCH 30.1 MCHC 34.5 RDW Std Deviation 41.3 RDW Coeff of Chapo 12.8 Plt Count 155 MPV 12.4 H Immature Gran % (Auto) 0.3 Neut % (Auto) 88.3 Lymph % (Auto) 7.0 [place] % (Auto) 4.3 Eos % (Auto) 0.0 Baso % (Auto) 0.1 Neut # (Auto) 9.07 H Lymph # (Auto) 0.72 L [place] # (Auto) 0.44 Eos # (Auto) 0.00 Baso # (Auto) 0.01 Immature Gran # (Auto) 0.03 H Sodium 136 Potassium 4.4 D Chloride 109 H Carbon Dioxide 20 L Anion Gap 7.0 BUN 21 H Creatinine 1.01 Est Cr Clr Drug Dosing 129.5 Est GFR ( Amer) 104.4 Est GFR (Non-Af Amer) 90.0 BUN/Creatinine Ratio 20.4 H Glucose 113 H Calcium 8.4 L Total Bilirubin 0.5 AST 56 H ALT 45 Alkaline Phosphatase 34 L Total Protein 6.4 Albumin 2.4 L Globulin 4.0 Albumin/Globulin Ratio 0.6 L Medications Administered Current Inpatient Medications Acetaminophen (Acetaminophen 325 Mg Tab) 650 mg PO Q4H PRN PRN Reason: Pain or Fever Stop: 03/25/21 10:24 Last Admin: 02/24/21 05:40 Dose: 650 mg Documented by: Enoxaparin Sodium (Enoxaparin Inj 40 Mg/0.4 Ml Syr) 40 mg SQ Q12H [facility] Stop: 03/25/21 10:59 Last Admin: 02/24/21 10:40 Dose: 40 mg Documented by: Dexamethasone 6 mg/ Syringe 1.5 mls @ 1 mls/min IV DAILY [facility] Stop: 03/05/21 08:59 Last Admin: 02/24/21 08:44 Dose: 1 mls/min Documented by: Ceftriaxone Sodium 2,000 mg/ (Dextrose) 70 mls @ 100 mls/hr IV Q24H [facility]; Protocol Stop: 03/03/21 08:59 Last Infusion: 02/24/21 09:27 Dose: Infused Documented by: Azithromycin 250 mg/ Dextrose 252.5 mls @ 125 mls/hr IV DAILY [facility] Stop: 03/03/21 08:59 Last Infusion: 02/24/21 10:49 Dose: Infused Documented by: Potassium Chloride/Sodium Chloride (Normal Saline W/20 Meq Kcl) 20 meq in 1,000 mls @ 120 mls/hr IV .Q8H20M [facility] Stop: 03/25/21 10:59 Last Admin: 02/24/21 11:57 Dose: 120 mls/hr Documented by: PG Care Time/CCT Total # of Minutes Spent Total Time Spent with Patient: Total time spent is greater than 50% in coordination of care (as documented) at patient's floor/unit and/or counseling patient: Coding Level of Care Code 08671 Subseq Hosp Care Lvl 2 Diagnoses Pneumonia due to COVID-19 virus U07.1; J12.82 KATIE (acute kidney injury) N17.9 Hypoxia R09.02
[2021-02-25] MEDS: NSS + 20MEQ KCL 20 MEQ/1,000 ML BAG IV SCH (05:14)
[2021-02-25 07:14] LABS: BUN Creatinine Ratio 16.6 (10-20); Calcium 8.7 mg/dl (8.5-10.1); Creatinine Clr Calc Pharmacy 131.2 ml/min; Est GFR (African American) 105.6; Est GFR (Non-African American) 91.1; Magnesium 2.3 mg/dl (1.8-2.4); Phosphorus 3.2 mg/dl (2.5-4.9); Potassium 4.3 mmol/L (3.5-5.1)
[2021-02-25] MEDS: dexAMETHasone 6 MG in SYRINGE 0 ML IV SCH ×2 (09:03→21:14)
[2021-02-25] MEDS: cefTRIAXone SODIUM 2,000 MG in DEXTROSE 5% 50 ML IV SCH (09:03)
[2021-02-25] MEDS: AZITHROMYCIN 250 MG in DEXTROSE 5% 250 ML IV SCH (09:04)
--- NOTE | 2021-02-25 10:45 | XRay Report ---
XR chest 1V portable HISTORY: Worsening shortness of breath. worsening COVID pneumonia COMPARISON: None. FINDINGS: No pneumothorax. No pleural effusions. The heart remains mildly enlarged. There are low gama g volumes. Progressive near diffuse bilateral airspace opacities consistent with a pneumonia. IMPRESSION: Progressive near diffuse bilateral airspace opacities consistent with a pneumonia. ACT 112: Negative or not required by law. Electronically signed by: David Trevino M.D. 02/25/2021 10:44 AM
[2021-02-25] MEDS: ENOXAPARIN INJ 40 MG/0.4 ML SYR SQ SCH ×2 (11:05→23:46)
[2021-02-25] MEDS: ACETAMINOPHEN 325 MG TAB PO PRN (21:09)
[2021-02-25] MEDS ORDERED: ONDANSETRON INJ 2 MG/ML 2 ML VIAL IV PRN (21:22)
[2021-02-25] MEDS ORDERED: LORazepam 0.5 MG/1 ML VIAL IV PRN (21:22)
--- NOTE | 2021-02-25 21:30 | Hospitalist Progress Note ---
Date of Service February 25, 2021 Assessment & Plan (1) Pneumonia due to COVID-19 virus: Antoni Page "is a 45-year-old male with a past medical history of prehypertension who presents with weakness, chills, cough, who is COVID positive. Covid pneumonia, ?Superimposed bacterial PNA with elevated procal worsening infiltrates on CXR on 02/25, increased oxygen requirements up to 3-5L no distress, actually looks like he is breathing a little easier will increase dexamethasone to 6mg IV q12, day 3 of steroids continue ceftriaxone and azithromycin, complete 7 days, day 3 stop IV fluids, eating and drinking better, want to keep lungs dry no role for Remdesivir as he presented too far along in course close monitoring for any deterioration, he is at high risk for severe infection (2) KATIE (acute kidney injury): Elevated creatinine at 1.9 on admission resolved with aggressive IV fluids at 120cc/hr Cr down to 1.0 past two days electrolytes stable stop fluids today, eating and drinking better want to keep lungs dry (3) Hypoxia: acute hypoxic respiratory failure, getting worse today, up to 3-5L feels short of breath but no distress encourage prone position, he is compliant (4) Insomnia: difficult time sleeping, only sleeps for 2 hours, up for 4 hours going "stir crazy" will give Ativan 0.5mg IV at bedtime to help him relax, might sleep a little longer Admission and Anticipated Discharge Date Admission Date: February 23, 2021 Subjective mild increase in oxygen requirements today, up to 3L today and 5L this evening he is not in distress, actually looks better clinically, breathing a little easier, sitting upright in chair at my visit he is laying prone during the day, compliant with advice he is eating a little better, drinking fluids, IV fluids can be stopped repeated CXR this morning, certainly has signs of worsening infiltrates will increase dexamethasone to 6mg IV q12 due to high risk of getting worse reviewed labs, CR is stable at 1.0, K 4.3, Mag and phos normal Review of Systems Review of Systems: All systems reviewed & are unremarkable except as noted in Subjective Constitutional: + fever, + chills, + sweats, + fatigue and + weakness Respiratory: + cough, + chest congestion, + dyspnea and + dyspnea on exertion; no pain with cough and no sputum production Cardiovascular: no chest pain and no edema Psychiatric: + abnormal sleep pattern (insomnia, can only sleep for about 2 hours) Physical Exam Constitutional: WD/WN, vitals as above + overweight; no acute distress Neck: trachea midline, no thyromegaly Respiratory: normal respiratory effort, lungs clear to auscultation Cardiovascular: RRR, no murmur, no edema Gastrointestinal (Abdomen): normal bowel sounds, soft, nontender, no hepatosplenomegaly Musculoskeletal: no cyanosis or clubbing, extremities motor strength 5/5 Skin: no rashes, warm and dry Neurologic: patellar DTR's 2+ bilat, sensation intact and PERRL, EOMI, accommodation nl, no face palsy, no dysarthria Psychiatric: A+Ox3, euthymic affect Lymphatic: no cervical or axillary lymphadenopathy Results & Data Results & Data ([facility]) Vital Signs (Past 12 Hours) Vital Signs Temp Pulse Pulse Resp BP Pulse Ox 02/25/21 20:00 39 C H 95 H 20 148/93 H 95 02/25/21 15:50 90 02/25/21 15:30 37.5 C 92 H 20 135/81 93 02/25/21 09:27 92 H Laboratory Results Laboratory Results - last 24 hr 02/25/21 06:11 Sodium 135 L Potassium 4.3 Chloride 106 Carbon Dioxide 23 Anion Gap 5.0 BUN 17 Creatinine 1.00 Est Cr Clr Drug Dosing 131.2 Est GFR ( Amer) 105.6 Est GFR (Non-Af Amer) 91.1 BUN/Creatinine Ratio 16.6 Glucose 108 H Calcium 8.7 Phosphorus 3.2 Magnesium 2.3 Medications Administered Current Inpatient Medications Acetaminophen (Acetaminophen 325 Mg Tab) 650 mg PO Q4H PRN PRN Reason: Pain or Fever Stop: 03/25/21 10:24 Last Admin: 02/25/21 21:09 Dose: 650 mg Documented by: Enoxaparin Sodium (Enoxaparin Inj 40 Mg/0.4 Ml Syr) 40 mg SQ Q12H [facility] Stop: 03/25/21 10:59 Last Admin: 02/25/21 11:05 Dose: 40 mg Documented by: Ceftriaxone Sodium 2,000 mg/ (Dextrose) 70 mls @ 100 mls/hr IV Q24H [facility]; Protocol Stop: 03/03/21 08:59 Last Infusion: 02/25/21 10:01 Dose: Infused Documented by: Azithromycin 250 mg/ Dextrose 252.5 mls @ 125 mls/hr IV DAILY [facility] Stop: 03/03/21 08:59 Last Infusion: 02/25/21 11:27 Dose: Infused Documented by: Dexamethasone 6 mg/ Syringe 1.5 mls @ 1 mls/min IV Q12 [facility] Stop: 03/07/21 20:59 Last Admin: 02/25/21 21:14 Dose: 1 mls/min Documented by: Lorazepam (Ativan) 0.5 mg in 1 mls @ 0.5 mls/min IV HS PRN PRN Reason: Insomnia Stop: 03/27/21 21:21 Ondansetron HCl (Ondansetron Inj 2 Mg/Ml 2 Ml Vial) 4 mg IV Q4H PRN PRN Reason: Nausea Stop: 03/27/21 21:21 PG Care Time/CCT Total # of Minutes Spent Total Time Spent with Patient: Total time spent is greater than 50% in coordination of care (as documented) at patient's floor/unit and/or counseling patient: Coding Level of Care Code 25100 Subseq Hosp Care Lvl 3 Diagnoses Pneumonia due to COVID-19 virus U07.1; J12.82 KATIE (acute kidney injury) N17.9 Hypoxia R09.02 Insomnia G47.00
[2021-02-26 06:52] LABS: Hematocrit (blood only) 41.8 % (42-52); Hemoglobin 14.3 g/dL (14.0-18.0); Mean Corpuscular Hemoglobin 30.4 pg (25-34); Mean Corpuscular Hgb Conc 34.2 g/dL (32-36); Mean Corpuscular Volume 88.9 fL (80-100); Mean Platelet Volume 11.9 fL (7.4-10.4); Platelet Count 242 K/uL (130-400); RDW Coefficient of Variation 12.8 % (11.5-14.5); RDW Standard Deviation 41.6 fL (36.4-46.3)
[2021-02-26 07:18] LABS: Calcium 8.3 mg/dl (8.5-10.1); Creatinine Clr Calc Pharmacy 114.7 ml/min; Est GFR (African American) 89.2
[2021-02-26] MEDS: dexAMETHasone 6 MG in SYRINGE 0 ML IV SCH ×2 (08:17→21:25)
[2021-02-26] MEDS: cefTRIAXone SODIUM 2,000 MG in DEXTROSE 5% 50 ML IV SCH (08:19)
[2021-02-26] MEDS: AZITHROMYCIN 250 MG in DEXTROSE 5% 250 ML IV SCH (08:22)
[2021-02-26] MEDS: ENOXAPARIN INJ 40 MG/0.4 ML SYR SQ SCH ×2 (11:09→21:25)
--- NOTE | 2021-02-26 13:45 | Hospitalist Progress Note ---
Date of Service February 26, 2021 Assessment & Plan (1) Pneumonia due to COVID-19 virus: Antoni Page "is a 45-year-old male with a past medical history of prehypertension who presents with weakness, chills, cough, who is COVID positive. Covid pneumonia, ?Superimposed bacterial PNA with elevated procal worsening infiltrates on CXR on 02/25, increased oxygen requirements up to 5L today no distress, actually looks like he is breathing a little easier, he says he feels a little better continue dexamethasone to 6mg IV q12 (increased to q12 on 02/25), day 4 of steroids continue ceftriaxone and azithromycin, complete 7 days, day 4 stopped IV fluids on 02/24, eating and drinking better, want to keep lungs dry no role for Remdesivir as he presented too far along in course close monitoring for any deterioration, he is at high risk for severe infection but for now he is stable check labs tomorrow with ESR, CRP, BNP repeat CXR tomorrow morning low threshold to try Lasix 20mg IV to keep negative fluid balance, keep lungs dry (2) KATIE (acute kidney injury): Elevated creatinine at 1.9 on admission resolved with aggressive IV fluids at 120cc/hr Cr down to 1 past three days electrolytes stable stop fluids 02/24, eating and drinking better want to keep lungs dry (3) Hypoxia: acute hypoxic respiratory failure, slightly more oxygen requirements, up to 5L breathing easy encourage prone position, he is compliant several times a day (4) Insomnia: difficult time sleeping, only sleeps for 2 hours, up for 4 hours going "stir crazy" actually slept okay last night, did not need Ativan Admission and Anticipated Discharge Date Admission Date: February 23, 2021 Subjective patient doing about the same, sitting up in his chair, got some clothes from home so he can feel a little more normal food doesn't appeal to him, wants meal supplements with Boost for now no fever/chills, minimal cough, he is trying to lay prone as much as he can checked labs, CBC and BMP stable, tolerating the higher dose of dexamethasone he is making urine, drinking well, had a small BM today Review of Systems Review of Systems: All systems reviewed & are unremarkable except as noted in Subjective Constitutional: no fever, no chills, no sweats, no fatigue and no weakness Respiratory: + cough, + dyspnea and + dyspnea on exertion; no sputum production Cardiovascular: no chest pain and no edema Gastrointestinal: no abdominal pain, no nausea, no vomiting, no constipation and no diarrhea/loose stools Physical Exam Constitutional: WD/WN, vitals as above + overweight; no acute distress Neck: trachea midline, no thyromegaly Respiratory: normal respiratory effort, lungs clear to auscultation Cardiovascular: RRR, no murmur, no edema Gastrointestinal (Abdomen): normal bowel sounds, soft, nontender, no hepatosplenomegaly Musculoskeletal: no cyanosis or clubbing, extremities motor strength 5/5 Skin: no rashes, warm and dry Neurologic: patellar DTR's 2+ bilat, sensation intact and PERRL, EOMI, accommodation nl, no face palsy, no dysarthria Psychiatric: A+Ox3, euthymic affect Lymphatic: no cervical or axillary lymphadenopathy Results & Data Results & Data ([facility]) Vital Signs (Past 12 Hours) Vital Signs Temp Pulse Pulse Resp BP Pulse Ox Pulse Ox 02/26/21 11:14 37 C 71 18 120/77 91 02/26/21 10:00 91 02/26/21 08:25 37 C 78 20 134/90 91 02/26/21 07:20 93 H 02/26/21 04:00 37.2 C 81 20 147/85 H 92 Laboratory Results Laboratory Results - last 24 hr 02/26/21 02/26/21 06:16 06:16 WBC 12.50 H RBC 4.70 Hgb 14.3 Hct 41.8 L MCV 88.9 MCH 30.4 MCHC 34.2 RDW Std Deviation 41.6 RDW Coeff of Chapo 12.8 Plt Count 242 D MPV 11.9 H Sodium 137 Potassium 4.0 Chloride 106 Carbon Dioxide 24 Anion Gap 7.0 BUN 21 H Creatinine 1.15 Est Cr Clr Drug Dosing 114.7 Est GFR ( Amer) 89.2 Est GFR (Non-Af Amer) 77.0 BUN/Creatinine Ratio 18.0 Glucose 151 H Calcium 8.3 L Medications Administered Current Inpatient Medications Acetaminophen (Acetaminophen 325 Mg Tab) 650 mg PO Q4H PRN PRN Reason: Pain or Fever Stop: 03/25/21 10:24 Last Admin: 02/25/21 21:09 Dose: 650 mg Documented by: Enoxaparin Sodium (Enoxaparin Inj 40 Mg/0.4 Ml Syr) 40 mg SQ Q12H TARIQ Stop: 03/25/21 10:59 Last Admin: 02/26/21 11:09 Dose: 40 mg Documented by: Ceftriaxone Sodium 2,000 mg/ (Dextrose) 70 mls @ 100 mls/hr IV Q24H TARIQ; Protocol Stop: 03/03/21 08:59 Last Infusion: 02/26/21 09:04 Dose: Infused Documented by: Azithromycin 250 mg/ Dextrose 252.5 mls @ 125 mls/hr IV DAILY TARIQ Stop: 03/03/21 08:59 Last Infusion: 02/26/21 11:16 Dose: Infused Documented by: Dexamethasone 6 mg/ Syringe 1.5 mls @ 1 mls/min IV Q12 TARIQ Stop: 03/07/21 20:59 Last Admin: 02/26/21 08:17 Dose: 1 mls/min Documented by: Lorazepam (Ativan) 0.5 mg in 1 mls @ 0.5 mls/min IV HS PRN PRN Reason: Insomnia Stop: 03/27/21 21:21 Ondansetron HCl (Ondansetron Inj 2 Mg/Ml 2 Ml Vial) 4 mg IV Q4H PRN PRN Reason: Nausea Stop: 03/27/21 21:21 PG Care Time/CCT Total # of Minutes Spent Total Time Spent with Patient: Total time spent is greater than 50% in coordination of care (as documented) at patient's floor/unit and/or counseling patient: Coding Level of Care Code 58142 Subseq Hosp Care Lvl 3 Diagnoses Pneumonia due to COVID-19 virus U07.1; J12.82 KATIE (acute kidney injury) N17.9 Hypoxia R09.02 Insomnia G47.00
[2021-02-27 07:26] LABS: Hematocrit (blood only) 40.6 % (42-52); Mean Corpuscular Hemoglobin 30.4 pg (25-34); Mean Corpuscular Hgb Conc 34.5 g/dL (32-36); Mean Corpuscular Volume 88.1 fL (80-100); Mean Platelet Volume 11.8 fL (7.4-10.4); Platelet Count 279 K/uL (130-400); RDW Coefficient of Variation 12.9 % (11.5-14.5); RDW Standard Deviation 41.8 fL (36.4-46.3); Red Blood Count 4.61 M/uL (4.7-6.1); White Blood Count 11.21 K/uL (4.8-10.8)
[2021-02-27 07:56] LABS: BUN Creatinine Ratio 26.8 (10-20); C Reactive Protein 7.96 mg/dl (0-0.29); Calcium 8.3 mg/dl (8.5-10.1); Creatinine Clr Calc Pharmacy 135.5 ml/min; Est GFR (Non-African American) 95.7; Potassium 4.2 mmol/L (3.5-5.1)
--- NOTE | 2021-02-27 08:45 | XRay Report ---
XR chest 1V portable CLINICAL HISTORY: COVID pneumonia COMPARISON STUDY: 02/25/2021 FINDINGS: The heart is enlarged. There are extensive bilateral pulmonary airspace opacities consisten t with extensive multifocal pneumonia. There is equivocal slight improvement when compared the preced ing study. There are no significant pleural effusions[ IMPRESSION: Equivocal slight improvement in the extensive bilateral pulmonary airspace opacities cons istent with a multifocal pneumonia ACT 112: Negative or not required by law. Electronically signed by: Frederick Garza M.D. 02/27/2021 8:43 AM
[2021-02-27] MEDS: dexAMETHasone 6 MG in SYRINGE 0 ML IV SCH ×2 (08:59→21:40)
[2021-02-27] MEDS: cefTRIAXone SODIUM 2,000 MG in DEXTROSE 5% 50 ML IV SCH (09:03)
[2021-02-27] MEDS ORDERED: FUROSEMIDE 20 MG in SYRINGE 0 ML IV ONE (09:55)
[2021-02-27] MEDS ORDERED: FUROSEMIDE 40 MG/4 ML VIAL IV ONE (10:15)
[2021-02-27] MEDS: AZITHROMYCIN 250 MG in DEXTROSE 5% 250 ML IV SCH (10:29)
[2021-02-27] MEDS: ENOXAPARIN INJ 40 MG/0.4 ML SYR SQ SCH ×2 (10:30→21:39)
--- NOTE | 2021-02-27 11:49 | Hospitalist Progress Note ---
Date of Service February 27, 2021 Assessment & Plan (1) Pneumonia due to COVID-19 virus: Antoni Page "is a 45-year-old male with a past medical history of prehypertension who presents with weakness, chills, cough, who is COVID positive. Covid pneumonia, possible superimposed bacterial PNA with slightly elevated pro- calcitonin on admission worsening infiltrates on CXR on 02/25, about the same today 02/27, increased oxygen requirements up to 10L wall high flow no distress, no labored breathing or accessory muscles laying prone at night, encouraged him to lay prone during the day if he can continue dexamethasone to 6mg IV q12 (increased to q12 on 02/25), day 5 of steroids continue ceftriaxone and azithromycin, complete 7 days, day 5 stopped IV fluids on 02/24, eating and drinking better, want to keep lungs dry no role for Remdesivir as he presented too far along in course close monitoring for any deterioration, he is at high risk for severe infection ESR and CRP elevated today gave lasix 20mg IV this morning, good response so far, might re-dose this afternoon (2) KATIE (acute kidney injury): Elevated creatinine at 1.9 on admission resolved with aggressive IV fluids at 120cc/hr Cr down to 1 past three days electrolytes stable stop fluids 02/24, eating and drinking better want to keep lungs dry, gave lasix 20mg IV this morning (3) Hypoxia: acute hypoxic respiratory failure, slightly more oxygen requirements, up to 10L wall high flow breathing easy encourage prone position, he is compliant at night, told him he needs to do it during the day as well (4) Insomnia: sleeping better now Admission and Anticipated Discharge Date Admission Date: February 23, 2021 Subjective patient feels about the same as yesterday, but requiring more oxygen, placed on 10L wall high flow no distress at all, gets winded walking to the sink to wash up but feels fine sitting in a chair he is drinking Boost, eating yogurt, no appetite for other things had a formed BM this morning CXR looks worse this morning, infiltrates are progressing stressed the importance of laying on his stomach during the day, he says he lays prone at night reminded him that prone positioning can prevent intubation, do not want to reach that point reviewed labs, ESR is 66, CRP 7.9, Cr 0.96 gave a dose of Lasix 20mg IV, he is making clear, yellow urine, several hundred mL already try to keep lungs dry Review of Systems Review of Systems: All systems reviewed & are unremarkable except as noted in Subjective Constitutional: + fatigue and + weakness; no fever Respiratory: + cough and + dyspnea on exertion; no dyspnea, no pain with cough and no sputum production Cardiovascular: no chest pain, no palpitations, no syncope and no edema Gastrointestinal: + early satiety; no abdominal pain, no nausea, no vomiting, no constipation, no diarrhea/loose stools and no blood in stools Physical Exam Constitutional: WD/WN, vitals as above + overweight; no acute distress Neck: trachea midline, no thyromegaly Respiratory: normal respiratory effort, lungs clear to auscultation Cardiovascular: RRR, no murmur, no edema Gastrointestinal (Abdomen): normal bowel sounds, soft, nontender, no hepatosplenomegaly Musculoskeletal: no cyanosis or clubbing, extremities motor strength 5/5 Skin: no rashes, warm and dry Neurologic: patellar DTR's 2+ bilat, sensation intact and PERRL, EOMI, accommodation nl, no face palsy, no dysarthria Psychiatric: A+Ox3, euthymic affect Lymphatic: no cervical or axillary lymphadenopathy Results & Data Results & Data ([facility]) Vital Signs (Past 12 Hours) Vital Signs Temp Pulse Pulse Resp BP Pulse Ox Pulse Ox 02/27/21 11:04 36.6 C 71 17 152/98 H 91 02/27/21 10:00 91 02/27/21 08:43 36.9 C 95 H 19 145/87 H 84 L 02/27/21 07:00 84 02/27/21 03:52 37.1 C 69 20 151/96 H 90 02/27/21 03:21 70 Laboratory Results Laboratory Results - last 24 hr 02/27/21 02/27/21 02/27/21 06:29 06:29 06:29 WBC 11.21 H RBC 4.61 L Hgb 14.0 Hct 40.6 L MCV 88.1 MCH 30.4 MCHC 34.5 RDW Std Deviation 41.8 RDW Coeff of Chapo 12.9 Plt Count 279 MPV 11.8 H ESR 66 H Sodium 137 Potassium 4.2 Chloride 107 Carbon Dioxide 24 Anion Gap 6.0 BUN 26 H Creatinine 0.96 Est Cr Clr Drug Dosing 135.5 Est GFR ( Amer) 111.0 Est GFR (Non-Af Amer) 95.7 BUN/Creatinine Ratio 26.8 H Glucose 139 H Calcium 8.3 L C-Reactive Protein 7.96 H NT-Pro-B Natriuret Pep 280 Diagnostic Findings XR chest 1V portable CLINICAL HISTORY: COVID pneumonia COMPARISON STUDY: 02/25/2021 FINDINGS: The heart is enlarged. There are extensive bilateral pulmonary airspace opacities consistent with extensive multifocal pneumonia. There is equi vocal slight improvement when compared the preceding study. There are no significant pleural effusions[ IMPRESSION: Equivocal slight improvement in the extensive bilateral pulmonary airspace opacities consistent with a multifocal pneumonia Medications Administered Current Inpatient Medications Acetaminophen (Acetaminophen 325 Mg Tab) 650 mg PO Q4H PRN PRN Reason: Pain or Fever Stop: 03/25/21 10:24 Last Admin: 02/25/21 21:09 Dose: 650 mg Documented by: Enoxaparin Sodium (Enoxaparin Inj 40 Mg/0.4 Ml Syr) 40 mg SQ Q12H TARIQ Stop: 03/25/21 10:59 Last Admin: 02/27/21 10:30 Dose: 40 mg Documented by: Ceftriaxone Sodium 2,000 mg/ (Dextrose) 70 mls @ 100 mls/hr IV Q24H TAIRQ; Protocol Stop: 03/03/21 08:59 Last Infusion: 02/27/21 10:37 Dose: Infused Documented by: Azithromycin 250 mg/ Dextrose 252.5 mls @ 125 mls/hr IV DAILY TARIQ Stop: 03/03/21 08:59 Last Admin: 02/27/21 10:29 Dose: 125 mls/hr Documented by: Dexamethasone 6 mg/ Syringe 1.5 mls @ 1 mls/min IV Q12 TARIQ Stop: 03/07/21 20:59 Last Admin: 02/27/21 08:59 Dose: 1 mls/min Documented by: Lorazepam (Ativan) 0.5 mg in 1 mls @ 0.5 mls/min IV HS PRN PRN Reason: Insomnia Stop: 03/27/21 21:21 Ondansetron HCl (Ondansetron Inj 2 Mg/Ml 2 Ml Vial) 4 mg IV Q4H PRN PRN Reason: Nausea Stop: 03/27/21 21:21 PG Care Time/CCT Total # of Minutes Spent Total Time Spent: 32 Total Time Spent with Patient: Total time spent is greater than 50% in coordination of care (as documented) at patient's floor/unit and/or counseling patient: Coding Level of Care Code 76218 Subseq Hosp Care Lvl 3 Diagnoses Pneumonia due to COVID-19 virus U07.1; J12.82 KATIE (acute kidney injury) N17.9 Hypoxia R09.02 Insomnia G47.00
[2021-02-28] MEDS: cefTRIAXone SODIUM 2,000 MG in DEXTROSE 5% 50 ML IV SCH (07:33)
[2021-02-28] MEDS: dexAMETHasone 6 MG in SYRINGE 0 ML IV SCH ×2 (07:33→21:05)
[2021-02-28] MEDS: AZITHROMYCIN 250 MG in DEXTROSE 5% 250 ML IV SCH (09:19)
[2021-02-28] MEDS ORDERED: FUROSEMIDE 20 MG in SYRINGE 0 ML IV ONE (09:29)
[2021-02-28] MEDS ORDERED: FUROSEMIDE 40 MG/4 ML VIAL IV ONE (09:45)
[2021-02-28 09:49] LABS: BUN Creatinine Ratio 24.4 (10-20); Calcium 8.3 mg/dl (8.5-10.1); Creatinine Clr Calc Pharmacy 117.8 ml/min; Est GFR (African American) 95.2; Est GFR (Non-African American) 82.1; Potassium 3.8 mmol/L (3.5-5.1)
--- NOTE | 2021-02-28 10:42 | Hospitalist Progress Note ---
Date of Service February 28, 2021 Assessment & Plan (1) Pneumonia due to COVID-19 virus: Antoni Page "is a 45-year-old male with a past medical history of prehypertension who presents with weakness, chills, cough, who is COVID positive. Covid pneumonia, possible superimposed bacterial PNA with slightly elevated pro- calcitonin on admission worsening infiltrates on CXR on 02/25, about the same on 02/27, changed from 15L wall high flow to Vapotherm today, 25L and 65%, saturations around 90% no distress, no labored breathing or accessory muscles laying prone all night, encouraged him to lay prone during the day, 2-3x for an hour each or more if he can tolerate discussed on 02/28 that prone position can prevent worsening illness and reduce need for intubation discussed that he is in a demographic that is high mortality risk just to stress the importance of being prone continue dexamethasone to 6mg IV q12 (increased to q12 on 02/25), day 6 of steroids continue ceftriaxone and azithromycin, complete 7 days, day 6 no role for Remdesivir as he presented too far along in course close monitoring for any deterioration, he is at high risk for severe infection ESR and CRP elevated on 02/27 good response to Lasix 20mg IV on 02/27, try to keep lungs dry re-dose Lasix 20mg IV this morning, could probably use a dose every morning but check renal function daily (2) KATIE (acute kidney injury): Elevated creatinine at 1.9 on admission resolved with aggressive IV fluids at 120cc/hr Cr down to 1 past three days electrolytes stable stop fluids 02/24, eating and drinking better now using Lasix 20mg IV daily to try to promote negative fluid balance, keep lungs dry as possible (3) Hypoxia: acute hypoxic respiratory failure, up to Vapotherm on 02/28 at 25L and 65% slightly tachypneic but no accessory muscle use encourage prone position, he is compliant all night, told him he needs to do it during the day as well (4) Insomnia: sleeping better now Admission and Anticipated Discharge Date Admission Date: February 23, 2021 Subjective patient says he feels well, placed him on Vapotherm this morning as saturations were 89% on 15L wall high flow doing well with 25L and 65% FiO2, sats 92%, he is sitting in a recliner partially reclined no cough, he is making urine, moved his bowels he was prone all night and did not get off his belly until breakfast, RN said he was very compliant stressed again the importance of laying prone during the day, 2-3x for at least an hour told him that laying prone can prevent worsening hypoxia, need for intubation and potential from COVID explained that his demographic is at high risk of getting worse, higher mortality rate he understands the importance of prone position labs show Cr of 1.09, K 3.8, responded well to Lasix 20mg IV yesterday, will give another dose this morning Review of Systems Review of Systems: All systems reviewed & are unremarkable except as noted in Subjective Constitutional: no fever, no chills, no sweats, no body aches, no fatigue and no weakness Respiratory: + cough, + dyspnea and + dyspnea on exertion; no sputum production Cardiovascular: no chest pain Gastrointestinal: no abdominal pain, no nausea, no vomiting, no constipation and no diarrhea/loose stools Physical Exam Constitutional: WD/WN, vitals as above + overweight; no acute distress Neck: trachea midline, no thyromegaly Respiratory: normal respiratory effort, lungs clear to auscultation Cardiovascular: RRR, no murmur, no edema Gastrointestinal (Abdomen): normal bowel sounds, soft, nontender, no hepatosplenomegaly Musculoskeletal: no cyanosis or clubbing, extremities motor strength 5/5 Skin: no rashes, warm and dry Neurologic: patellar DTR's 2+ bilat, sensation intact and PERRL, EOMI, accommodation nl, no face palsy, no dysarthria Psychiatric: A+Ox3, euthymic affect Lymphatic: no cervical or axillary lymphadenopathy Results & Data Results & Data ([facility]) Vital Signs (Past 12 Hours) Vital Signs Temp Pulse Pulse Resp BP Pulse Ox 02/28/21 09:45 81 20 91 02/28/21 07:24 36.9 C 58 L 18 166/117 H 92 02/28/21 03:56 37.1 C 52 L 18 131/80 93 02/27/21 23:49 37.1 C 59 L 18 150/74 H 92 02/27/21 23:00 65 Laboratory Results Laboratory Results - last 24 hr 02/28/21 09:06 Sodium 138 Potassium 3.8 Chloride 106 Carbon Dioxide 25 Anion Gap 7.0 BUN 27 H Creatinine 1.09 Est Cr Clr Drug Dosing 117.8 Est GFR ( Amer) 95.2 Est GFR (Non-Af Amer) 82.1 BUN/Creatinine Ratio 24.4 H Glucose 144 H Calcium 8.3 L Medications Administered Current Inpatient Medications Acetaminophen (Acetaminophen 325 Mg Tab) 650 mg PO Q4H PRN PRN Reason: Pain or Fever Stop: 03/25/21 10:24 Last Admin: 02/25/21 21:09 Dose: 650 mg Documented by: Enoxaparin Sodium (Enoxaparin Inj 40 Mg/0.4 Ml Syr) 40 mg SQ Q12H TARIQ Stop: 03/25/21 10:59 Last Admin: 02/27/21 21:39 Dose: 40 mg Documented by: Ceftriaxone Sodium 2,000 mg/ (Dextrose) 70 mls @ 100 mls/hr IV Q24H TARIQ; Protocol Stop: 03/03/21 08:59 Last Infusion: 02/28/21 08:41 Dose: Infused Documented by: Azithromycin 250 mg/ Dextrose 252.5 mls @ 125 mls/hr IV DAILY TARIQ Stop: 03/03/21 08:59 Last Admin: 02/28/21 09:19 Dose: 125 mls/hr Documented by: Dexamethasone 6 mg/ Syringe 1.5 mls @ 1 mls/min IV Q12 TARIQ Stop: 03/07/21 20:59 Last Admin: 02/28/21 07:33 Dose: 1 mls/min Documented by: Lorazepam (Ativan) 0.5 mg in 1 mls @ 0.5 mls/min IV HS PRN PRN Reason: Insomnia Stop: 03/27/21 21:21 Ondansetron HCl (Ondansetron Inj 2 Mg/Ml 2 Ml Vial) 4 mg IV Q4H PRN PRN Reason: Nausea Stop: 03/27/21 21:21 PG Care Time/CCT Total # of Minutes Spent Total Time Spent: 33 Total Time Spent with Patient: Total time spent is greater than 50% in coordination of care (as documented) at patient's floor/unit and/or counseling patient: Coding Level of Care Code 70554 Subseq Hosp Care Lvl 3 Diagnoses Pneumonia due to COVID-19 virus U07.1; J12.82 KATIE (acute kidney injury) N17.9 Hypoxia R09.02 Insomnia G47.00
[2021-02-28] MEDS: ENOXAPARIN INJ 40 MG/0.4 ML SYR SQ SCH ×2 (10:48→21:06)
[2021-02-28] MEDS ORDERED: DEXAMETHASONE SOD INJ 4 MG/ML VIAL IV STA (21:52)
[2021-02-28] MEDS ORDERED: dexAMETHasone 20 MG in DEXTROSE 5% 25 ML IV ONE (22:15)
[2021-02-28] MEDS ORDERED: dexAMETHasone 4 MG in SYRINGE 0 ML IV ONE (22:15)
[2021-03-01 06:31] LABS: BUN Creatinine Ratio 23.5 (10-20); Calcium 8.4 mg/dl (8.5-10.1); Creatinine Clr Calc Pharmacy 134.8 ml/min; Est GFR (African American) 112.4; Potassium 4.6 mmol/L (3.5-5.1)
[2021-03-01] MEDS: dexAMETHasone 20 MG in DEXTROSE 5% 25 ML IV SCH (07:24)
[2021-03-01] MEDS: cefTRIAXone SODIUM 2,000 MG in DEXTROSE 5% 50 ML IV SCH (08:07)
[2021-03-01] MEDS: AZITHROMYCIN 250 MG in DEXTROSE 5% 250 ML IV SCH (08:58)
[2021-03-01] MEDS ORDERED: FUROSEMIDE 20 MG in SYRINGE 0 ML IV ONE (09:00)
[2021-03-01] MEDS ORDERED: FUROSEMIDE 40 MG/4 ML VIAL IV ONE (09:00)
[2021-03-01] MEDS: ENOXAPARIN INJ 40 MG/0.4 ML SYR SQ SCH ×2 (11:13→22:36)
--- NOTE | 2021-03-01 12:32 | Hospitalist Progress Note ---
Date of Service March 01, 2021 Assessment & Plan (1) Pneumonia due to COVID-19 virus: Antoni Page "is a 45-year-old male with a past medical history of prehypertension who presents with weakness, chills, cough, who is COVID positive. Covid pneumonia, possible superimposed bacterial PNA with slightly elevated pro- calcitonin on admission worsening infiltrates on CXR on 02/25, about the same on 02/27, changed from 15L wall high flow to Vapotherm on 02/28, now up to 30 L and FiO2 65%, pulse ox mid 90s with prone and 89-90% with sitting up no distress, no labored breathing or accessory muscles Doing well with prone positioning frequently -Continue dexamethasone 6mg IV q12 (increased to q12 on 02/25), day 7 of steroids - ceftriaxone and azithromycin, completed 7 days today -no role for Remdesivir as he presented too far along in course -, But seems stable today close monitoring for any deterioration, he is at high risk for severe infection ESR and CRP elevated on 02/27 good response to Lasix 20mg IV on 02/27, try to keep lungs dry re-dose Lasix 20mg IV again this morning -Follow CMP, CBC (2) AKTIE (acute kidney injury): Elevated creatinine at 1.9 on admission resolved with aggressive IV fluids at 120cc/hr Cr now normal for many days even in the midst of using IV Lasix Is tolerating p.o., no further IV fluids being used now using Lasix 20mg IV daily to try to promote negative fluid balance, keep lungs dry as possible (3) Hypoxia: acute hypoxic respiratory failure, on Vapotherm as above slightly tachypneic but no accessory muscle use encourage prone position (4) Insomnia: sleeping better now (5) DVT prophylaxis: Lovenox 40 mg SQ every 12 hours Disposition-continued stay in PCU Admission and Anticipated Discharge Date Admission Date: February 23, 2021 Subjective Patient feels a little bit better overall but remains on high flow nasal cannula at 30 L and 60% FiO2. He is laying prone he says 20 hours of the day and does well with it. He just got washed up and remained at 88-89% while sitting while I was talking to him. Denies chest pain or cough. No chest pain. No headache. No abd pain, nausea, or diarrhea Tele with NSR, rates 50-80s, PACs Review of Systems Review of Systems: All systems reviewed & are unremarkable except as noted in HPI & below Physical Exam Constitutional: WD/WN, vitals as above Eyes: + anicteric sclerae Neck: trachea midline, no thyromegaly Respiratory: normal respiratory effort Auscultation: + crackles (Bilateral middle and lower lung ewing); no rhonchi and no wheezes Cardiovascular: RRR, no murmur, no edema Extremities: no calf tenderness Chest (Breasts): Chest: normal inspection of chest Gastrointestinal (Abdomen): normal bowel sounds, soft, nontender, no hepatosplenomegaly Musculoskeletal: Extremities: extremities normal to inspection; no cyanosis and no clubbing Skin: no rashes, warm and dry Neurologic: moves all extremities and awake; no focal motor deficits Psychiatric: A+Ox3, euthymic affect Lymphatic: no lymphedema Results & Data Results & Data ([facility]) Vital Signs (Past 12 Hours) Vital Signs Temp Pulse Pulse Resp BP BP Pulse Ox 03/01/21 11:25 37.0 C 83 18 115/74 92 03/01/21 08:43 48 L 03/01/21 08:31 85 22 90 03/01/21 07:19 37.3 C 94 H 20 135/102 H 90 03/01/21 04:31 37.0 C 72 19 174/129 H 93 03/01/21 03:34 90 24 88 L Laboratory Results 03/01/21 Range/Units 05:44 Sodium 138 (136-145) mmol/L Potassium 4.6 D (3.5-5.1) mmol/L Chloride 103 (98-107) mmol/L Carbon Dioxide 31 (21-32) mmol/L Anion Gap 3.0 (3-11) BUN 22 H (7-18) mg/dl Creatinine 0.95 (0.6-1.4) mg/dl Est Cr Clr Drug Dosing 134.8 ml/min Est GFR ( Amer) 112.4 Est GFR (Non-Af Amer) 97.0 BUN/Creatinine Ratio 23.5 H (10-20) Glucose 153 H (70-99) mg/dl Calcium 8.4 L (8.5-10.1) mg/dl PG Care Time/CCT Total # of Minutes Spent Total Time Spent with Patient: Total time spent is greater than 50% in coordination of care (as documented) at patient's floor/unit and/or counseling patient: Coding Level of Care Code 59727 Subseq Hosp Care Lvl 3 Diagnoses Pneumonia due to COVID-19 virus U07.1; J12.82 KATIE (acute kidney injury) N17.9 Hypoxia R09.02 Insomnia G47.00 DVT prophylaxis Z29.9
[2021-03-02 07:33] LABS: Hemoglobin 14.7 g/dL (14.0-18.0); Mean Corpuscular Hemoglobin 30.4 pg (25-34); Mean Corpuscular Hgb Conc 34.2 g/dL (32-36); Mean Platelet Volume 11.2 fL (7.4-10.4); Platelet Count 405 K/uL (130-400); RDW Coefficient of Variation 12.7 % (11.5-14.5); RDW Standard Deviation 41.4 fL (36.4-46.3); Red Blood Count 4.83 M/uL (4.7-6.1); White Blood Count 16.85 K/uL (4.8-10.8)
[2021-03-02 08:06] LABS: Albumin Level 2.4 gm/dl (3.4-5.0); BUN Creatinine Ratio 26.4 (10-20); C Reactive Protein 1.26 mg/dl (0-0.29); Calcium 8.2 mg/dl (8.5-10.1); Creatinine Clr Calc Pharmacy 139.1 ml/min; Est GFR (African American) 116.8; Est GFR (Non-African American) 100.8; Magnesium 2.4 mg/dl (1.8-2.4); Potassium 4.1 mmol/L (3.5-5.1)
[2021-03-02 08:09] LABS: Albumin Globulin Ratio 0.6 (0.9-2); Bilirubin,Total 0.5 mg/dl (0.2-1); Globulin 3.8 gm/dl (2.5-4.0); Total Protein 6.2 gm/dl (6.4-8.2)
[2021-03-02 08:11] LABS: Basophils # (auto) 0.04 K/uL (0-0.2); Basophils % (auto) 0.2 %; Eosinophils # (auto) 0.04 K/uL (0-0.5); Eosinophils % (auto) 0.2 %; Immature Granulocytes # (auto) 1.01 K/uL (0.00-0.02); Lymphocytes # (auto) 2.69 K/uL (1.2-3.4); Monocytes # (auto) 0.95 K/uL (0.11-0.59); Monocytes % (auto) 5.6 %; Neutrophils # (auto) 12.12 K/uL (1.4-6.5)
[2021-03-02] MEDS: dexAMETHasone 20 MG in DEXTROSE 5% 25 ML IV SCH (08:29)
[2021-03-02] MEDS: ENOXAPARIN INJ 40 MG/0.4 ML SYR SQ SCH ×2 (11:12→22:26)
--- NOTE | 2021-03-02 13:35 | Hospitalist Progress Note ---
Date of Service March 02, 2021 Assessment & Plan (1) Pneumonia due to COVID-19 virus: Antoni Page "is a 45-year-old male with a past medical history of prehypertension who presents with weakness, chills, cough, who is COVID positive. Covid pneumonia, possible superimposed bacterial PNA with slightly elevated pro- calcitonin on admission worsening infiltrates on CXR on 02/25, about the same on 02/27, changed from 15L wall high flow to Vapotherm on 02/28, now up to 30 L and FiO2 65%, pulse ox mid 90s with prone and 89-90% with sitting up no distress, no labored breathing or accessory muscles Doing well with prone positioning frequently, but also encouraged IS and standing up and moving/marching in place -Continue dexamethasone 6mg IV q12 (increased to q12 on 02/25), day 8 of steroids - ceftriaxone and azithromycin, completed 7 days -no role for Remdesivir as he presented too far along in course ESR and CRP elevated on 02/27 and CRP now trending down to 1 good response to Lasix 20mg IV on 02/27, 02/28, and 03/01, try to keep lungs dry (2) KATIE (acute kidney injury): Elevated creatinine at 1.9 on admission resolved with aggressive IV fluids at 120cc/hr Cr now normal for many days even in the midst of using IV Lasix Is tolerating p.o., no further IV fluids being used (3) Hypoxia: acute hypoxic respiratory failure, on Vapotherm as above stable but not improved since yesterday, remains on 30L, 70% FiO2-wean off as able to encourage prone position (4) Insomnia: sleeping better now (5) DVT prophylaxis: Lovenox 40 mg SQ every 12 hours Disposition-continued stay in PCU Admission and Anticipated Discharge Date Admission Date: February 23, 2021 Subjective Feeling ok, but remains on HFNC 30L and 70% FiO2. is lying prone most of the day but not up and moving much.When prone, POx 95-97%. He has not moved his bowels in 4 days. Tele with NSR, SB, rates 40s-70s Review of Systems Review of Systems: All systems reviewed & are unremarkable except as noted in HPI & below Physical Exam Constitutional: WD/WN, vitals as above Eyes: + anicteric sclerae Neck: trachea midline, no thyromegaly Respiratory: normal respiratory effort Auscultation: + crackles (Bilateral middle and lower lung ewing); no rhonchi and no wheezes Cardiovascular: RRR, no murmur, no edema Extremities: no calf tenderness Chest (Breasts): Chest: normal inspection of chest Gastrointestinal (Abdomen): normal bowel sounds, soft, nontender, no hepatosplenomegaly Musculoskeletal: Extremities: extremities normal to inspection; no cyanosis and no clubbing Skin: no rashes, warm and dry Neurologic: moves all extremities and awake; no focal motor deficits Psychiatric: A+Ox3, euthymic affect Lymphatic: no lymphedema Results & Data Results & Data ([facility]) Vital Signs (Past 12 Hours) Vital Signs Temp Pulse Pulse Resp BP BP Pulse Ox 03/02/21 11:26 68 16 92 03/02/21 11:24 37.1 C 64 16 141/89 H 93 03/02/21 11:14 37 C 70 20 157/10 H 91 03/02/21 10:33 54 L 03/02/21 10:00 03/02/21 08:00 37.2 C 52 L 16 137/85 95 03/02/21 06:13 81 14 88 L 03/02/21 04:09 44 L 15 94 03/02/21 02:59 36.9 C 51 L 18 154/93 H 97 Pulse Ox 03/02/21 11:26 03/02/21 11:24 03/02/21 11:14 03/02/21 10:33 03/02/21 10:00 96 03/02/21 08:00 03/02/21 06:13 03/02/21 04:09 03/02/21 02:59 Laboratory Results 03/02/21 03/02/21 Range/Units 06:41 06:41 WBC 16.85 H (4.8-10.8) K/uL RBC 4.83 (4.7-6.1) M/uL Hgb 14.7 (14.0-18.0) g/dL Hct 43.0 (42-52) % MCV 89.0 (80-100) fL MCH 30.4 (25-34) pg MCHC 34.2 (32-36) g/dL RDW Std Deviation 41.4 (36.4-46.3) fL RDW Coeff of Chapo 12.7 (11.5-14.5) % Plt Count 405 H (130-400) K/uL MPV 11.2 H (7.4-10.4) fL Immature Gran % (Auto) 6.0 % Neut % (Auto) 72.0 % Lymph % (Auto) 16.0 % Mccone % (Auto) 5.6 % Eos % (Auto) 0.2 % Baso % (Auto) 0.2 % Neut # (Auto) 12.12 H (1.4-6.5) K/uL Lymph # (Auto) 2.69 (1.2-3.4) K/uL Mccone # (Auto) 0.95 H (0.11-0.59) K/uL Eos # (Auto) 0.04 (0-0.5) K/uL Baso # (Auto) 0.04 (0-0.2) K/uL Immature Gran # (Auto) 1.01 H (0.00-0.02) K/uL Sodium 139 (136-145) mmol/L Potassium 4.1 (3.5-5.1) mmol/L Chloride 105 (98-107) mmol/L Carbon Dioxide 29 (21-32) mmol/L Anion Gap 4.0 (3-11) BUN 24 H (7-18) mg/dl Creatinine 0.92 (0.6-1.4) mg/dl Est Cr Clr Drug Dosing 139.1 ml/min Est GFR ( Amer) 116.8 Est GFR (Non-Af Amer) 100.8 BUN/Creatinine Ratio 26.4 H (10-20) Glucose 92 (70-99) mg/dl Calcium 8.2 L (8.5-10.1) mg/dl Magnesium 2.4 (1.8-2.4) mg/dl Total Bilirubin 0.5 (0.2-1) mg/dl AST 40 H (15-37) U/L ALT 147 H (12-78) U/L Alkaline Phosphatase 38 L (45-117) U/L C-Reactive Protein 1.26 H (0-0.29) mg/dl Total Protein 6.2 L (6.4-8.2) gm/dl Albumin 2.4 L (3.4-5.0) gm/dl Globulin 3.8 (2.5-4.0) gm/dl Albumin/Globulin Ratio 0.6 L (0.9-2) PG Care Time/CCT Total # of Minutes Spent Total Time Spent with Patient: Total time spent is greater than 50% in coordination of care (as documented) at patient's floor/unit and/or counseling patient: Coding Level of Care Code 64561 Subseq Hosp Care Lvl 2 Diagnoses Pneumonia due to COVID-19 virus U07.1; J12.82 KAITE (acute kidney injury) N17.9 Hypoxia R09.02 Insomnia G47.00 DVT prophylaxis Z29.9
[2021-03-02] MEDS: POLYETHYLENE (MIRALAX) 17 GM PACK PO SCH (15:09)
[2021-03-03] MEDS: POLYETHYLENE (MIRALAX) 17 GM PACK PO SCH (08:08)
[2021-03-03] MEDS: dexAMETHasone 20 MG in DEXTROSE 5% 25 ML IV SCH (08:09)
[2021-03-03] MEDS: ENOXAPARIN INJ 40 MG/0.4 ML SYR SQ SCH ×2 (10:50→21:00)
--- NOTE | 2021-03-03 16:37 | Hospitalist Progress Note ---
Date of Service March 03, 2021 Assessment & Plan (1) Pneumonia due to COVID-19 virus: Antoni Page "is a 45-year-old male with a past medical history of prehypertension who presents with weakness, chills, cough, who is COVID positive. Covid pneumonia, possible superimposed bacterial PNA with slightly elevated pro- calcitonin on admission worsening infiltrates on CXR on 02/25, about the same on 02/27, changed from 15L wall high flow to Vapotherm on 02/28 at 30L, FiO2 65% for 3 days and now finally weaned down to 4LNC and doing excellent no distress, no labored breathing or accessory muscles Doing well with prone positioning frequently, but also encouraged IS and standing up and moving/marching in place, ambulating around room -Continue dexamethasone but decrease to 10mg IV qAM -day 9 of steroids - ceftriaxone and azithromycin, completed 7 days -no role for Remdesivir as he presented too far along in course ESR and CRP elevated on 02/27 and CRP then trended down to 1 good response to Lasix 20mg IV on 02/27, 02/28, and 03/01, try to keep lungs dry -check CBC, CMP, CRP tomorrow May be able to discharge tomorrow after a 2 step (2) KATIE (acute kidney injury): Elevated creatinine at 1.9 on admission resolved with aggressive IV fluids at 120cc/hr Cr now normal for many days even in the midst of using IV Lasix Is tolerating p.o., no further IV fluids being used is eating and drinking well (3) Hypoxia: acute hypoxic respiratory failure, on Vapotherm as above now much improved as above (4) Insomnia: sleeping better now (5) DVT prophylaxis: Lovenox 40 mg SQ every 12 hours Disposition-downgrade to med/surg and can remove COVID precautions Admission and Anticipated Discharge Date Admission Date: February 23, 2021 Subjective Feeling very well. Has been ambulating around the room. Was weaned from HFNC all the way down to 4LNC and is with POx 94-96% while I saw him. Denies any SOB or CP. He mvoed his bowels yesterday Tele with SB-NST 40-70s Review of Systems Review of Systems: All systems reviewed & are unremarkable except as noted in HPI & below Physical Exam Constitutional: WD/WN, vitals as above Eyes: + anicteric sclerae Neck: trachea midline, no thyromegaly Respiratory: normal respiratory effort, lungs clear to auscultation Cardiovascular: RRR, no murmur, no edema Extremities: no calf tenderness Chest (Breasts): Chest: normal inspection of chest Gastrointestinal (Abdomen): normal bowel sounds, soft, nontender, no hepatosplenomegaly Musculoskeletal: Extremities: extremities normal to inspection; no cyanosis and no clubbing Skin: no rashes, warm and dry Neurologic: moves all extremities and awake; no focal motor deficits Psychiatric: A+Ox3, euthymic affect Lymphatic: no lymphedema Results & Data Results & Data ([facility]) Vital Signs (Past 12 Hours) Vital Signs Temp Pulse Pulse Resp BP Pulse Ox Pulse Ox 03/03/21 16:24 96 03/03/21 15:32 37.0 C 83 20 105/59 L 95 03/03/21 14:44 93 03/03/21 11:01 36.8 C 78 20 106/59 L 92 03/03/21 10:00 95 03/03/21 08:00 63 03/03/21 07:35 36.9 C 60 18 132/84 97 03/03/21 05:02 36.5 C 80 20 92 PG Care Time/CCT Total # of Minutes Spent Total Time Spent with Patient: Total time spent is greater than 50% in coordination of care (as documented) at patient's floor/unit and/or counseling patient: Coding Level of Care Code 66612 Subseq Hosp Care Lvl 2 Diagnoses Pneumonia due to COVID-19 virus U07.1; J12.82 KATIE (acute kidney injury) N17.9 Hypoxia R09.02 Insomnia G47.00 DVT prophylaxis Z29.9
[2021-03-04 06:18] LABS: Hematocrit (blood only) 44.9 % (42-52); Hemoglobin 15.4 g/dL (14.0-18.0); Mean Corpuscular Hemoglobin 30.6 pg (25-34); Mean Corpuscular Hgb Conc 34.3 g/dL (32-36); Mean Corpuscular Volume 89.3 fL (80-100); Mean Platelet Volume 11.3 fL (7.4-10.4); Platelet Count 463 K/uL (130-400); RDW Coefficient of Variation 12.8 % (11.5-14.5); RDW Standard Deviation 41.7 fL (36.4-46.3); Red Blood Count 5.03 M/uL (4.7-6.1); White Blood Count 21.45 K/uL (4.8-10.8)
[2021-03-04 06:50] LABS: Albumin Level 2.7 gm/dl (3.4-5.0); BUN Creatinine Ratio 22.9 (10-20); C Reactive Protein 0.84 mg/dl (0-0.29); Calcium 8.7 mg/dl (8.5-10.1); Creatinine Clr Calc Pharmacy 130.2 ml/min; Est GFR (African American) 108.2; Est GFR (Non-African American) 93.4; Potassium 4.4 mmol/L (3.5-5.1)
[2021-03-04 06:53] LABS: Albumin Globulin Ratio 0.7 (0.9-2); Bilirubin,Total 0.5 mg/dl (0.2-1); Total Protein 6.7 gm/dl (6.4-8.2)
[2021-03-04 06:56] LABS: Basophils # (auto) 0.04 K/uL (0-0.2); Basophils % (auto) 0.2 %; Eosinophils # (auto) 0.01 K/uL (0-0.5); Immature Granulocytes # (auto) 1.39 K/uL (0.00-0.02); Immature Granulocytes % (auto) 6.5 %; Lymphocytes # (auto) 2.95 K/uL (1.2-3.4); Lymphocytes % (auto) 13.8 %; Monocytes # (auto) 1.15 K/uL (0.11-0.59); Monocytes % (auto) 5.4 %; Neutrophils # (auto) 15.91 K/uL (1.4-6.5); Neutrophils % (auto) 74.1 %
[2021-03-04] MEDS ORDERED: DEXAMETHASONE SOD INJ 4 MG/ML VIAL IV SCH (09:00)
[2021-03-04] MEDS ORDERED: dexAMETHasone 10 MG in SYRINGE 0 ML IV SCH (09:00)
[2021-03-04] MEDS: POLYETHYLENE (MIRALAX) 17 GM PACK PO SCH (09:20)
[2021-03-04] MEDS: ENOXAPARIN INJ 40 MG/0.4 ML SYR SQ SCH (12:46)
--- NOTE | 2021-03-04 14:26 | Discharge Summary ---
Date of Service March 04, 2021 Admission HPI Per Admitting Provider Antoni Page "is a 45-year-old male with a past medical history of prehypertension who presents with weakness, chills, cough, and concern for Covid. Sathish reports that for 7 days he has had cough, chills, diarrhea, no appetite, and soaking night sweats. He reports he was tested 8 days ago, and was negative, but developed symptoms the day after his test. His has tested positive for Covid, his son who also initially tested negative has retested positive for Covid. He reports he presented to the ER because he felt "really bad and just wiped out "and has not been eating and drinking as well. He has had multiple liquid brown watery bowel movements without blood daily. His urine has been very dark. He reports he has been too fatigued to stand up, and had 3 episodes where he was standing at home and slumped to the ground because he was "just wiped out ". He denies syncope, and did not hit his head or neck. He does not have any focal weakness, but endorses global fatigue. He endorses a constant dry cough which has been productive for brown/yellow mucus a couple of times, but is otherwise nonproductive. He endorses some shortness of breath, and feeling like he is working hard to breathe. He is not having chest pain or chest pressure. He denies numbness and tingling. Medical history: Reviewed, prehypertension Medications: Reviewed, no home medications Allergies: Reviewed, no known drug allergies and no known food allergies Family history: Denies family history of blood clots, strokes, and [place] Social: Living situation: Patient reports he lives in a home with his and son. Both his and his son have tested positive for Covid. 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 Tobacco use: Denies tobacco use including cigarettes, chew, and vaping Alcohol: Endorses drinking 1-2 times per week, 6 per setting on the weekends. No history of withdrawal symptoms Recreational drug use: Denies recreational drug and medical marijuana use CODE STATUS: Full code Principal Diagnosis COVID-19 pneumonia, acute respiratory failure with hypoxia Discharge Exam Constitutional WD/WN, vitals as above Eyes + anicteric sclerae Neck trachea midline, no thyromegaly Respiratory normal respiratory effort, lungs clear to auscultation Cardiovascular RRR, no murmur, no edema Extremities: no calf tenderness Chest (Breasts) Chest: normal inspection of chest Gastrointestinal (Abdomen) normal bowel sounds, soft, nontender, no hepatosplenomegaly Musculoskeletal Extremities: extremities normal to inspection; no cyanosis and no clubbing Skin no rashes, warm and dry Neurologic moves all extremities and awake; no focal motor deficits Psychiatric A+Ox3, euthymic affect Lymphatic no lymphedema Discharge Data Allergies Allergy/AdvReac Type Severity Reaction Status Date / Time No Known Allergies Allergy Verified 02/23/21 06:13 Consultations 02/23/21 08:15 ED Decision to Admit Stat Ordered Studies Chest x-ray x3 Hospital Course (1) Pneumonia due to COVID-19 virus: Antoni Page"is a 45-year-old male with a past medical history of prehypertension who presents with weakness, chills, cough, who is COVID positive. Covid pneumonia, possible superimposed bacterial PNA with slightly elevated pro- calcitonin on admission worsening infiltrates on CXR on 02/25, about the same on 02/27, changed from 15L wall high flow to Vapotherm on 02/28 at 30L, FiO2 65% for 3 days and now finally weaned down to room air. He passed a two-step walk test on the day of discharge-the lowest pulse ox he had was 89% on room air with exertion. no distress, no labored breathing or accessory muscles Doing well with prone positioning frequently, but also encouraged IS and standing up and moving/marching in place, ambulating around room -Continue dexamethasone for 4 more days after discharge at 6 mg orally per day- this will complete a 14-day course-prolonged due to severe illness - ceftriaxone and azithromycin, completed 7 days -no role for Remdesivir as he presented too far along in course ESR and CRP elevated on 02/27 and CRP then trended down to 0.84 good response to Lasix 20mg IV on 02/27, 02/28, and 03/01, to keep lungs dry -Stable for discharge home We will send home with 35-day course of Xarelto 10 mg once daily for VTE prophylaxis given significant prolonged immobilization, acute inflammatory illness with Covid-19, age greater than 40, with history of prehypertension and obesity with BMI greater than 35 (2) KATIE (acute kidney injury): Elevated creatinine at 1.9 on admission resolved with aggressive IV fluids at 120cc/hr Cr now normal for many days even in the midst of using IV Lasix Is tolerating p.o., no further IV fluids being used is eating and drinking well (3) Hypoxia: acute hypoxic respiratory failure, on Vapotherm for a while and now weaned to room air now resolved (4) Insomnia: sleeping better now (5) DVT prophylaxis: Lovenox 40 mg SQ every 12 hours was used and now Xarelto will be utilized upon discharge as above Disposition-stable for discharge home, no longer needs to be in quarantine Total Time Total Time Spent Total Time Spent (In Minutes): 35 minutes Total Time Includes: Examination of the Patient, Discharge Planning and Medication Reconciliation Discharge Plan Discharge Items Patient Disposition: Home - Self-Care Reason For Visit: COVID PNA Discharge Diagnosis: Covid-19 pneumonia, acute respiratory failure with hypoxia Condition on Discharge: Good Activity: As commented below Lifting: Gradually increase as tolerated Bathing: No limitations Exercise/Sports: Gradually increase as tolerated Exercise Comment: But no heavy exertion x2 weeks Non-emergency contact: Primary Care Provider Call non-emergency contact if: you have any medication questions and your symptoms worsen Follow-up/Referrals: Bebeto Posey, [Primary Care Provider] - (Please follow-up within 1 to 2 weeks.) Diet: Heart Healthy Addtl Attending Provider Instructions: Please finish out 4 more days of the steroid pill called dexamethasone. He also be placed on a low-dose of a blood thinner called Xarelto to prevent blood clots for the next 35 days. If you develop chest pain, shortness of breath, leg pain or swelling, or any other acute concerns, please come back to the hospital right away. Follow-up with your primary care physician within 1 to 2 weeks. You should have a follow-up chest x-ray in 3 to 4 weeks to ensure that your pneumonia is resolved. Pending Studies at Discharge: No Stand-Alone Forms: My [facility] Medications and DC Order Prescriptions: New dexamethasone 6 mg tablet 6 mg PO DAILY Qty: 4 RF: 0 Xarelto 10 mg tablet 10 mg PO DAILY 35 Days Qty: 35 RF: 0 No Action No Known Home Medications RF: 0 Discharge Orders: Discharge Order (Routine); Ordered 03/04/21 Ordered By: Sherin Duenas Admission Data Admit Date/Time: 02/23/21 09:20 Attending Provider: Sherin Duenas Admit Provider: Fernandez Daniels Primary Care Provider: Bebeto Posey Other Providers: Fernandez Daniels Coding Level of Care Code D/C Day Management >30 mins Diagnoses Pneumonia due to COVID-19 virus U07.1; J12.82 KATIE (acute kidney injury) N17.9 Hypoxia R09.02 Insomnia G47.00 DVT prophylaxis Z29.9
== END 2021-03-04 16:00 | disposition home or self-care (01) | DRG 177 ==
LOC: ED 05:48 → SUATTDRO 09:20 → 2S 09:20 → 2E 02-26 18:25 → 3E 03-03 17:07